=== PATIENT | male | born 1930 | race Caucasian/White ===

== ENCOUNTER 2016-08-23 08:16 | Emergency (ER) | payer MEDICARE, BC ==
[2016-08-23] MEDS ORDERED: Sodium Chloride 0.9% 500 ML IV ONE (08:57)
[2016-08-23] MEDS ORDERED: Sodium Chloride 0.9% 2.5 ML Syringe FLUSH PRN (08:57)
[2016-08-23] MEDS ORDERED: Sodium Chloride 0.9% 10 ML Syringe FLUSH PRN (08:57)
[2016-08-23 09:11] LABS: CHLORIDE,CL 104 mmol/L (98-110); SODIUM,NA 140 mmol/L (136-146)
--- NOTE | 2016-08-23 10:04 | EDM.PDOC ---
ED HPI GENERAL MEDICAL PROBLEM - General Chief Complaint: General Stated Complaint: VERTIGO Time Seen by Provider: 08/23/16 08:45 Source of Information: Reports: Patient, Family History Limitations: Reports: No Limitations - History of Present Illness INITIAL COMMENTS - FREE TEXT/NARRATIVE: History of present illness: []Patient presents with generalized weakness some point we cannot get out of his wheelchair and walk. He is from [place] and his just he secured [place] for her . He has not been eating well or drinking much. He denies any new pain but has chronic low back pain. Denies any numbness or tingling. Patient recently had a UTI was treated with Cipro but states he feels like he has another UTI. Review of systems: As per history of present illness and below otherwise all systems reviewed and negative. Past medical history: As per history of present illness and as reviewed below otherwise noncontributory. Surgical history: As per history of present illness and as reviewed below otherwise noncontributory. Social history: No reported history of drug or alcohol abuse. Family history: As per history of present illness and as reviewed below otherwise noncontributory. Physical exam: General: Well developed, well nourished in NAD HEENT: Atraumatic, normocephalic, pupils reactive, negative for conjunctival pallor or scleral icterus, mucous membranes moist, throat clear, neck supple, nontender, trachea midline. Lungs: Clear to auscultation, breath sounds equal bilaterally, chest nontender. Heart: S1S2, regular, negative for clicks, rubs, or JVD. Abdomen: Soft, nondistended, nontender. Negative for masses or hepatosplenomegaly. Negative for costovertebral tenderness. Pelvis: Stable nontender. Genitourinary: Deferred. Rectal: Deferred. Extremities: Atraumatic, negative for cords or calf pain. Neurovascular unremarkable. Neuro: Awake, alert, oriented. Cranial nerves II through XII unremarkable. Cerebellum unremarkable. Motor and sensory unremarkable throughout. Exam nonfocal. Diagnostics: [] Urine shows UTI Therapeutics: [] Rocephin IV and a liter of saline given here with improvement Impression: [] UTI, dehydration Plan: [] Bactrim twice a day increase fluids followup with primary care have INR rechecked in 2-3 days as Bactrim can alter the levels of your INR. Definitive disposition and diagnosis as appropriate pending reevaluation and review of above. Lower Back Pain Score (Numeric/FACES): 6 - Related Data Allergies Allergy/AdvReac Type Severity Reaction Status Date / Time NSAIDS (Non-Steroidal Allergy Cannot Verified 07/19/13 13:56 Anti-Inflamma Remember Salicylates * [Salicylates] Allergy Cannot Verified 07/19/13 13:56 Remember Home Meds: Home Meds Hydrochlorothiazide 25 mg PO DAILY 08/23/16 [History] Insulin Detemir [Levemir] 20 unit SUBCUT BEDTIME 08/23/16 [History] Metoprolol Tartrate 25 mg PO 08/23/16 [History] Oxybutynin 5 mg PO BID PRN 08/23/16 [History] Sulfamethoxazole/Trimethoprim [Bactrim Ds Tablet] 1 each PO BID #20 tablet 08/23 [Rx] Verapamil HCl [Verapamil ER] 240 mg PO DAILY 08/23/16 [History] Warfarin Sodium [Jantoven] 5 mg PO 08/23/16 [History] traMADol [Ultram] 50 mg PO Q6H PRN 08/23/16 [History] Past Medical History HEENT History: Reports: Hard of Hearing Cardiovascular History: Reports: Hypertension, Pacemaker, Syncope Other Cardiovascular History: Reports left bundle branch block Respiratory History: Reports: None Genitourinary History: Reports: Prostate Disorder, UTI, Recurrent, Other (See Below) Other Genitourinary History: Urinary Frequency Musculoskeletal History: Reports: Back Pain, Chronic Neurological History: Reports: Vertigo Endocrine/Metabolic History: Reports: Diabetes, Type II - Past Surgical History Cardiovascular Surgical History: Reports: Pacer Musculoskeletal Surgical History: Reports: Shoulder Surgery Other Musculoskeletal Surgeries/Procedures:: Patient reports "back surgery and bilateraly shoulder surgery" Social & Family History - Family History Family Medical History: Noncontributory - Tobacco Use Smoking Status *Q: Former Smoker Used Tobacco, but Quit: Yes Month Tobacco Last Used: years ago - Caffeine Use Caffeine Use: Reports: Coffee - Recreational Drug Use Recreational Drug Use: No ED ROS GENERAL - Review of Systems Review Of Systems: See Below (See history of present illness) ED EXAM, GENERAL - Physical Exam Exam: See Below (See history of present illness) Course - Vital Signs Last Recorded V/S: Last Vital Signs Temp 36.3 C 08/23/16 08:41 Pulse 78 08/23/16 09:45 Resp 16 08/23/16 09:45 BP 145/79 H 08/23/16 09:45 Pulse Ox 98 08/23/16 09:45 - Orders/Labs/Meds Orders: Active Orders 24 hr Category Date Time Status CULTURE URINE [RM] Stat Lab 08/23/16 09:38 Received Sodium Chloride 0.9% [Saline Flush] Med 08/23/16 08:57 Active 10 ml FLUSH ASDIRECTED PRN Sodium Chloride 0.9% [Saline Flush] Med 08/23/16 08:57 Active 2.5 ml FLUSH ASDIRECTED PRN cefTRIAXone [Rocephin in Dextrose,Iso-Osm 1 GM/50 ML] 1 Med 08/23/16 11:01 Active gm Premix Bag 1 bag IV ONETIME Peripheral IV Insertion Adult [OM.PC] Stat Oth 08/23/16 08:57 Ordered Medication Orders Ceftriaxone Sodium/Dextrose 1 (gm/ Premix) 50 mls @ 100 mls/hr IV ONETIME ONE Stop: 08/23/16 11:30 Last Admin: 08/23/16 11:05 Dose: 100 mls/hr Sodium Chloride (Saline Flush) 10 ml FLUSH ASDIRECTED PRN PRN Reason: Keep Vein Open Sodium Chloride (Saline Flush) 2.5 ml FLUSH ASDIRECTED PRN PRN Reason: Keep Vein Open Labs: Laboratory Tests 08/23/16 08/23/16 08/23/16 Range/Units 08:44 08:44 09:38 WBC 6.60 (4.0-11.0) K/uL RBC 3.60 L (4.50-5.90) M/uL Hgb 10.8 L (13.0-17.0) g/dL Hct 34.4 L (38.0-50.0) % MCV 95.6 (80.0-98.0) fL MCH 30.0 (27.0-32.0) pg MCHC 31.4 (31.0-37.0) g/dL RDW Std Deviation 46.3 (28.0-62.0) fl RDW Coeff of Meera 13 (11.0-15.0) % Plt Count 229 (150-400) K/uL MPV 8.50 (7.40-12.00) fL Neut % (Auto) 64.9 (48.0-80.0) % Lymph % (Auto) 20.6 (16.0-40.0) % [place] % (Auto) 11.2 (0.0-15.0) % Eos % (Auto) 2.7 (0.0-7.0) % Baso % (Auto) 0.6 (0.0-1.5) % Neut # (Auto) 4.3 (1.4-5.7) K/uL Lymph # (Auto) 1.4 (0.6-2.4) K/uL [place] # (Auto) 0.7 (0.0-0.8) K/uL Eos # (Auto) 0.2 (0.0-0.7) K/uL Baso # (Auto) 0.0 (0.0-0.1) K/uL Nucleated RBC % 0.0 /100WBC Nucleated RBCs # 0 K/uL Sodium 140 (136-146) mmol/L Potassium 4.0 (3.5-5.1) mmol/L Chloride 104 (98-110) mmol/L Carbon Dioxide 26 (21-31) mmol/L BUN 32 H (6.0-23.0) mg/dL Creatinine 1.0 (0.6-1.5) mg/dL Est Cr Clr Drug Dosing 49.40 mL/min Estimated GFR (MDRD) > 60.0 ml/min Glucose 135 H (60-110) mg/dL Calcium 9.3 (8.8-10.8) mg/dL Total Bilirubin 0.5 (0.1-1.5) mg/dL AST 15 (5-40) IU/L ALT 9 (8-54) IU/L Alkaline Phosphatase 68 (40-150) Total Protein 7.3 (6.0-8.0) g/dL Albumin 3.6 (3.4-4.8) g/dL Globulin 3.7 H (2.0-3.5) g/dL Albumin/Globulin Ratio 1.0 L (1.3-2.8) Urine Color YELLOW Urine Appearance SLT CLOUDY Urine pH 6.0 (5.0-8.0) Ur Specific [place] 1.015 (1.001-1.035) Urine Protein 30 (NEGATIVE) mg/dL Urine Glucose (UA) NEGATIVE (NEGATIVE) mg/dL Urine Ketones NEGATIVE (NEGATIVE) mg/dL Urine Occult Blood SMALL H (NEGATIVE) Urine Nitrite NEGATIVE (NEGATIVE) Urine Bilirubin NEGATIVE (NEGATIVE) Urine Urobilinogen 0.2 (<2.0) EU/dL Ur Leukocyte Esterase LARGE (NEGATIVE) Urine RBC 2-3 (0-2/HPF) Urine WBC TO NUMEROUS TO COUNT H (0-5/HPF) Ur Epithelial Cells RARE (NONE-FEW) Amorphous Sediment FEW (NEGATIVE) Urine Bacteria FEW (NEGATIVE) Meds: Medications Generic Name Dose Route Start Last Admin Trade Name Freq PRN Reason Stop Dose Admin Ceftriaxone Sodium/Dextrose 1 50 mls @ 100 mls/hr 08/23/16 11:01 08/23/16 11: 05 gm/ Premix IV 08/23/16 11:30 100 mls/hr ONETIME ONE Administration Sodium Chloride 10 ml 08/23/16 08:57 Saline Flush FLUSH ASDIRECTED PRN Keep Vein Open Sodium Chloride 2.5 ml 08/23/16 08:57 Saline Flush FLUSH ASDIRECTED PRN Keep Vein Open Discontinued Medications Generic Name Dose Route Start Last Admin Trade Name Freq PRN Reason Stop Dose Admin Sodium Chloride 500 mls @ 999 mls/hr 08/23/16 08:57 08/23/16 09:20 Normal Saline IV 08/23/16 09:27 999 mls/hr .Bolus ONE Administration Departure - Departure Time of Disposition: 11:26 Disposition: Home, Self-Care 01 Condition: good Clinical Impression: UTI (urinary tract infection) Qualifiers: Urinary tract infection type: site unspecified Hematuria presence: without hematuria Qualified Code(s): N39.0 - Urinary tract infection, site not specified - Discharge Information Prescriptions: Sulfamethoxazole/Trimethoprim [Bactrim Ds Tablet] 1 each PO BID #20 tablet Instructions: Urinary Tract Infection, Adult Referrals: PCP,None [Primary Care Provider] - Forms: ED Department Discharge Additional Instructions: The following information is given to patients seen in the emergency department who are being discharged to home. This information is to outline your options for follow-up care. We provide all patients seen in our emergency department with a follow-up referral. The need for follow-up, as well as the timing and circumstances, are variable depending upon the specifics of your emergency department visit. If you don't have a primary care physician on staff, we will provide you with a referral. We always advise you to contact your personal physician following an emergency department visit to inform them of the circumstance of the visit and for follow-up with them and/or the need for any referrals to a consulting specialist. The emergency department will also refer you to a specialist when appropriate. This referral assures that you have the opportunity for follow-up care with a specialist. All of these measure are taken in an effort to provide you with optimal care, which includes your follow-up. Under all circumstances we always encourage you to contact your private physician who remains a resource for coordinating your care. When calling for follow-up care, please make the office aware that this follow-up is from your recent emergency room visit. If for any reason you are refused follow-up, please contact the [facility] Emergency Department at and asked to speak to the emergency department charge nurse. Bactrim twice a day for 10 days. Have INR checked in 2-3 days. Followup with her primary care physician. Drink lots of fluids [facility] [address] [place] [address] - My Orders Last 24 Hours: My Active Orders 08/23/16 08:57 Sodium Chloride 0.9% [Saline Flush] 10 ml FLUSH ASDIRECTED PRN Sodium Chloride 0.9% [Saline Flush] 2.5 ml FLUSH ASDIRECTED PRN Peripheral IV Insertion Adult [OM.PC] Stat 08/23/16 09:38 CULTURE URINE [RM] Stat 08/23/16 11:01 cefTRIAXone [Rocephin in Dextrose,Iso-Osm 1 GM/50 ML] 1 gm Premix Bag 1 bag IV ONETIME - Assessment/Plan Last 24 Hours: My Active Orders 08/23/16 08:57 Sodium Chloride 0.9% [Saline Flush] 10 ml FLUSH ASDIRECTED PRN Sodium Chloride 0.9% [Saline Flush] 2.5 ml FLUSH ASDIRECTED PRN Peripheral IV Insertion Adult [OM.PC] Stat 08/23/16 09:38 CULTURE URINE [RM] Stat 08/23/16 11:01 cefTRIAXone [Rocephin in Dextrose,Iso-Osm 1 GM/50 ML] 1 gm Premix Bag 1 bag IV ONETIME
[2016-08-23] MEDS ORDERED: cefTRIAXone 1 GM in Premix Bag 1 BAG IV ONE (11:01)
[2016-08-23 11:39] VITALS: BP 149/79
== END 2016-08-23 11:35 | disposition home or self-care (01) ==
LOC: MW.ED 08:16
DX: N39.0 Urinary tract infection, site not specified (principal); E86.0 Dehydration; E11.9 Type 2 diabetes mellitus without complications; I10 Essential (primary) hypertension; Z88.8 Allergy status to other drugs, medicaments and biological substances; Z91.02 Food additives allergy status; Z79.899 Other long term (current) drug therapy; Z95.0 Presence of cardiac pacemaker; Z87.440 Personal history of urinary (tract) infections; Z87.891 Personal history of nicotine dependence
CPT/HCPCS: 36415; 80053; 81001; 85025; 87086; 96361; 96365; 99283; J0696; J7040; 87077; 87186; 99284

== ENCOUNTER 2016-08-25 23:11 | Inpatient (IN) | payer MEDICARE, BC ==
[2016-08-26] MEDS ORDERED: levETIRAcetam Soln 500 MG/5 ML Cup PO ONE (00:26)
--- NOTE | 2016-08-26 01:01 | EDM.PDOC ---
ED HPI GENERAL MEDICAL PROBLEM - General Chief Complaint: Neuro Symptoms/Deficits Stated Complaint: VERTIGO Time Seen by Provider: 08/25/16 23:50 Source of Information: Reports: Patient, Family - History of Present Illness INITIAL COMMENTS - FREE TEXT/NARRATIVE: He is brought in by family members.His 's was yesterday. He presents with intermittent involuntary muscle jerking x 3-4 days that have been increasing in frequency . He started tramadol for chronic back pain about two weeks ago No known history of stroke or dementia or Parkinson's recently, the last days to weeks, he seems to know what to say but he has trouble "getting the words out". no fever no vomiting poor appetite lower back Pain Score (Numeric/FACES): 5 - Related Data Allergies Allergy/AdvReac Type Severity Reaction Status Date / Time NSAIDS (Non-Steroidal Allergy Cannot Verified 08/25/16 23:12 Anti-Inflamma Remember Salicylates * [Salicylates] Allergy Cannot Verified 08/25/16 23:12 Remember Home Meds: Home Meds Hydrochlorothiazide 25 mg PO DAILY 08/23/16 [History] Insulin Detemir [Levemir] 20 unit SUBCUT BEDTIME 08/23/16 [History] Metoprolol Tartrate 25 mg PO DAILY 08/23/16 [History] Oxybutynin 5 mg PO BID PRN 08/23/16 [History] Sulfamethoxazole/Trimethoprim [Bactrim Ds Tablet] 1 each PO BID #20 tablet 08/23 [Rx] Verapamil HCl [Verapamil ER] 240 mg PO DAILY 08/23/16 [History] Warfarin Sodium [Jantoven] 5 mg PO DAILY 08/23/16 [History] traMADol [Ultram] 50 mg PO Q6H PRN 08/23/16 [History] Past Medical History HEENT History: Reports: Hard of Hearing Cardiovascular History: Reports: Afib, Hypertension, Pacemaker, Syncope Other Cardiovascular History: Reports left bundle branch block Respiratory History: Reports: None Gastrointestinal History: Reports: None Genitourinary History: Reports: Prostate Disorder, UTI, Recurrent, Other (See Below) Other Genitourinary History: Urinary Frequency Musculoskeletal History: Reports: Back Pain, Chronic Neurological History: Reports: Vertigo Psychiatric History: Reports: None Endocrine/Metabolic History: Reports: Diabetes, Type II Hematologic History: Reports: None Dermatologic History: Reports: None - Infectious Disease History Infectious Disease History: Reports: None - Past Surgical History Cardiovascular Surgical History: Reports: Pacer Musculoskeletal Surgical History: Reports: Shoulder Surgery Other Musculoskeletal Surgeries/Procedures:: Patient reports "back surgery and bilateraly shoulder surgery" Social & Family History - Family History Family Medical History: Noncontributory - Tobacco Use Smoking Status *Q: Never Smoker Used Tobacco, but Quit: Yes Month Tobacco Last Used: years ago - Caffeine Use Caffeine Use: Reports: None - Recreational Drug Use Recreational Drug Use: No ED ROS GENERAL - Review of Systems Review Of Systems: See Below Constitutional: Denies: Fever, Chills Respiratory: Denies: Shortness of Breath, Cough, Sputum Cardiovascular: Denies: Chest Pain, Edema GI/Abdominal: Reports: Decreased Appetite. Denies: Abdominal Pain, Hematemesis , Hematochezia, Melena, Vomiting Skin: Denies: Cyanosis Psychiatric: Denies: Agitation, Confusion Free Text/Narrative/Comment: he has not been on insulin recently because he has been eating less. ED EXAM, NEURO - Physical Exam Exam: See Below Text/Narrative:: He is cooperative but seems to have trouble in answering questions . He is able to state where we are but his answer is delayed and he appears frustrated. He did not answer me the year when asked. frequent upper extremity and torso myoclonic jerking; symmetrical General Appearance: Alert Throat/Mouth: Normal Lips Head Exam: Atraumatic Neck: Supple Respiratory/Chest: No Respiratory Distress, Lungs Clear, Normal Breath Sounds, No Accessory Muscle Use Cardiovascular: Regular Rate, Rhythm GI/Abdominal: Soft, No Distention. No: Tender Neurological: Alert Extremities: No: Pedal Edema Comments: no motor asymmetry Course - Vital Signs Last Recorded V/S: Last Vital Signs Temp 97.5 F 08/26/16 00:26 Pulse 78 08/26/16 01:24 Resp 20 08/26/16 01:24 BP 120/60 08/26/16 01:24 Pulse Ox 98 08/26/16 01:24 - Orders/Labs/Meds Orders: Active Orders 24 hr Category Date Time Status EKG 12 Lead [EKG Documentation Completion] [RC] STAT Care 08/25/16 23:14 Active Head wo Cont [CT] Stat Exams 08/26/16 00:24 Taken CULTURE URINE [RM] Stat Lab 08/26/16 01:47 Uncollected Labs: Laboratory Tests 08/25/16 08/26/16 08/26/16 Range/Units 23:40 00:31 00:31 WBC 5.80 (4.0-11.0) K/uL RBC 3.14 L (4.50-5.90) M/uL Hgb 9.8 L (13.0-17.0) g/dL Hct 29.9 L (38.0-50.0) % MCV 95.2 (80.0-98.0) fL MCH 31.2 (27.0-32.0) pg MCHC 32.8 (31.0-37.0) g/dL RDW Std Deviation 43.3 (28.0-62.0) fl RDW Coeff of Meera 13 (11.0-15.0) % Plt Count 233 (150-400) K/uL MPV 8.30 (7.40-12.00) fL Neut % (Auto) 67.1 (48.0-80.0) % Lymph % (Auto) 19.3 (16.0-40.0) % [place] % (Auto) 9.8 (0.0-15.0) % Eos % (Auto) 3.1 (0.0-7.0) % Baso % (Auto) 0.7 (0.0-1.5) % Neut # (Auto) 3.9 (1.4-5.7) K/uL Lymph # (Auto) 1.1 (0.6-2.4) K/uL [place] # (Auto) 0.6 (0.0-0.8) K/uL Eos # (Auto) 0.2 (0.0-0.7) K/uL Baso # (Auto) 0.0 (0.0-0.1) K/uL Sodium 134 L (136-146) mmol/L Potassium 3.8 (3.5-5.1) mmol/L Chloride 103 (98-110) mmol/L Carbon Dioxide 22 (21-31) mmol/L BUN 27 H (6.0-23.0) mg/dL Creatinine 1.2 (0.6-1.5) mg/dL Est Cr Clr Drug Dosing 41.32 mL/min Estimated GFR (MDRD) 57.1 ml/min Glucose 113 H (60-110) mg/dL Calcium 8.8 (8.8-10.8) mg/dL Magnesium 1.6 (1.5-2.3) mEq/L Total Bilirubin 0.3 (0.1-1.5) mg/dL AST 17 (5-40) IU/L ALT 10 (8-54) IU/L Alkaline Phosphatase 60 (40-150) Total Protein 6.7 (6.0-8.0) g/dL Albumin 3.3 L (3.4-4.8) g/dL Globulin 3.4 (2.0-3.5) g/dL Albumin/Globulin Ratio 1.0 L (1.3-2.8) Urine Color YELLOW Urine Appearance SLT CLOUDY Urine pH 6.5 (5.0-8.0) Ur Specific [place] 1.020 (1.001-1.035) Urine Protein 30 (NEGATIVE) mg/dL Urine Glucose (UA) NEGATIVE (NEGATIVE) mg/dL Urine Ketones NEGATIVE (NEGATIVE) mg/dL Urine Occult Blood TRACE-INTACT (NEGATIVE) Urine Nitrite POSITIVE H (NEGATIVE) Urine Bilirubin NEGATIVE (NEGATIVE) Urine Urobilinogen 0.2 (<2.0) EU/dL Ur Leukocyte Esterase MODERATE (NEGATIVE) Urine RBC 0-2 (0-2/HPF) Urine WBC 41-46 (0-5/HPF) Ur Epithelial Cells FEW (NONE-FEW) Urine Bacteria FEW (NEGATIVE) Urine Mucus LIGHT (NONE-MOD) Meds: Medications Discontinued Medications Generic Name Dose Route Start Last Admin Trade Name Freq PRN Reason Stop Dose Admin Levetiracetam 500 mg 08/26/16 00:26 08/26/16 01:22 Keppra PO 08/26/16 00:27 500 mg NOW ONE Administration - Re-Assessments/Exams Free Text/Narrative Re-Assessment/Exam: 08/26/16 01:08 EKG shows paced wide QRS copmlexes Free Text/Narrative Re-Assessment/Exam: 08/26/16 01:[address] shows no acute intracranial process but he does have cerebral atrophy. I am concerned about the possibility of a recent stroke not seen on CT as he has an expressive aphasia The etiology of the symptoms may be multifactorial but we did discuss the possibility of tramadol as a cause. Departure - Departure Time of Disposition: 01:51 Disposition: Admitted As Inpatient 64 Condition: fair Clinical Impression: UTI (urinary tract infection), Expressive aphasia, Myoclonus - Discharge Information Referrals: PCP,None [Primary Care Provider] - Forms: ED Department Discharge Care Plan Goals: UTI with failed outpatient therapy. post void urinary bladder volume on scanning about 160 ml - My Orders Last 24 Hours: My Active Orders 08/25/16 23:14 EKG 12 Lead [EKG Documentation Completion] [RC] STAT 08/26/16 00:24 Head wo Cont [CT] Stat 08/26/16 01:47 CULTURE URINE [RM] Stat - Assessment/Plan Last 24 Hours: My Active Orders 08/25/16 23:14 EKG 12 Lead [EKG Documentation Completion] [RC] STAT 08/26/16 00:24 Head wo Cont [CT] Stat 08/26/16 01:47 CULTURE URINE [RM] Stat
[2016-08-26] MEDS ORDERED: Sodium Chloride 0.9% 10 ML Syringe FLUSH PRN (01:53)
[2016-08-26] MEDS ORDERED: Temazepam 15 MG Cap PO PRN (01:53)
[2016-08-26] MEDS ORDERED: Bisacodyl 5 MG Tab PO PRN (01:53)
[2016-08-26] MEDS ORDERED: Sodium Chloride 0.9% 2.5 ML Syringe FLUSH PRN (01:53)
[2016-08-26] MEDS ORDERED: Ondansetron 4 MG Tab.DIS PO PRN (01:53)
[2016-08-26] MEDS ORDERED: cefTRIAXone 1 GM in Premix Bag 1 BAG IV ONE (02:01)
[2016-08-26] MEDS ORDERED: Morphine 4 MG/ML Syringe IVPUSH PRN (05:26)
[2016-08-26] MEDS ORDERED: Morphine 2 MG/ML Syringe IVPUSH PRN (08:15)
--- NOTE | 2016-08-26 08:17 | PCM.HP ---
H&P History of Present Illness - General Date of Service: 08/26/16 Admit Problem/Dx: Admission Diagnosis/Problem Admission Diagnosis/Problem Aphasia Source of Information: Patient - History of Present Illness Initial Comments - Free Text/Narative: This 86 h[place]encia old male with pmh of chronic back pain with L4-5 fusion and L2-3 decompression, pacemaker, HTN, syncope, recurrent UTIs, and DM type 2 presented to the ED last evening upon urging from children. He currently is living in [place], but is here is [place] for his 's . He reports he has had symptoms of the inability to find words, generalized weakness, jerking of upper extremities intermittently, and reports some swallowing difficulties within the last week. He denies any chest pain, SOB, palpitations, headache blurred vision or double vision. No fevers at home, no neck pain. No abdominal pain. Still having some urinary symptoms, burning and frequency. His back pain is hurting more recently and was started on Tramadol, around the time a lot of these symtpoms started. He feels while walking he is "going one way then another and back again." He has had trouble getting up and ambulating for the last week, feels like his "left knee or something" is weak. In ED family reported a jerking to upper limbs, symmetrical. No family at bedside to discuss recent symptoms with. 1 to 1 1/2 weeks ago he was treated for UTI by physician in [place] for UTI with Cipro for 7 days. He was then seen back in our ED 2 days ago for continued urinary symptoms. He was sent home with Bactrim DS and just today UC returned with Staph aureus resistant to fluoroquinolones. In the ED WBC 5,000 Hgb 9.8, BUN 27, Cr 1.2. INR 1.49. UA revealed +nitrites, mod leukocyte esterase, WBC 41-46, UC pending. Head CT completed which revealed no acute intracranial process, diffuse cerebral atrophy noted, chronic microvascular disease noted as well. He was treated with Rocephin in ED and admitted for aphasia and UTI. He was started on Keppra in ED for myoclonic jerking which was noted. lower back Pain Score (Numeric/FACES): 3 - Related Data Allergies/Adverse Reactions: Allergies Allergy/AdvReac Type Severity Reaction Status Date / Time NSAIDS (Non-Steroidal Allergy Cannot Verified 08/25/16 23:12 Anti-Inflamma Remember Salicylates * [Salicylates] Allergy Cannot Verified 08/25/16 23:12 Remember Home Medications: Home Meds Hydrochlorothiazide 25 mg PO DAILY 08/23/16 [History] Insulin Detemir [Levemir] 20 unit SUBCUT BEDTIME 08/23/16 [History] Metoprolol Tartrate 25 mg PO DAILY 08/23/16 [History] Oxybutynin 5 mg PO BID PRN 08/23/16 [History] Sulfamethoxazole/Trimethoprim [Bactrim Ds Tablet] 1 each PO BID #20 tablet 08/23 [Rx] Verapamil HCl [Verapamil ER] 240 mg PO DAILY 08/23/16 [History] Warfarin Sodium [Jantoven] 5 mg PO DAILY 08/23/16 [History] traMADol [Ultram] 50 mg PO Q6H PRN 08/23/16 [History] Past Medical History HEENT History: Reports: Hard of Hearing, Impaired Vision (wears glasses) Cardiovascular History: Reports: Afib, High Cholesterol, Hypertension, Pacemaker , Syncope. Denies: Blood Clots/VTE/DVT, Stents Other Cardiovascular History: Hx left bundle branch block Respiratory History: Reports: None. Denies: COPD Gastrointestinal History: Reports: None. Denies: GERD, GI Bleed Genitourinary History: Reports: Prostate Disorder, UTI, Recurrent, Other (See Below) Other Genitourinary History: Urinary Frequency Musculoskeletal History: Reports: Back Pain, Chronic Neurological History: Reports: Vertigo Psychiatric History: Reports: None Endocrine/Metabolic History: Reports: Diabetes, Type II. Denies: Hypothyroidism Hematologic History: Reports: None. Denies: B12 Deficiency Dermatologic History: Reports: None - Infectious Disease History Infectious Disease History: Reports: None - Past Surgical History Cardiovascular Surgical History: Reports: Pacer Male Surgical History: Reports: TURP-Transurethral Resection of Prostate Musculoskeletal Surgical History: Reports: Shoulder Surgery Other Musculoskeletal Surgeries/Procedures:: Patient reports "back surgery and bilateraly shoulder surgery" Social & Family History - Family History Family Medical History: Noncontributory - Tobacco Use Smoking Status *Q: Former Smoker (not for over 20 years) Used Tobacco, but Quit: Yes Month Tobacco Last Used: years ago Second Hand Smoke Exposure: No - Caffeine Use Caffeine Use: Reports: Coffee - Recreational Drug Use Recreational Drug Use: No H&P Review of Systems - Review of Systems: Review Of Systems: See Below General: Reports: Weakness. Denies: Fever, Chills, Decreased Appetite HEENT: Reports: No Symptoms. Denies: Eye Pain, Headaches, Sinus Congestion, Vertigo, Visual Changes Pulmonary: Reports: No Symptoms. Denies: Shortness of Breath, Cough, Sputum Cardiovascular: Reports: No Symptoms. Denies: Chest Pain, Palpitations, Edema Gastrointestinal: Reports: No Symptoms. Denies: Abdominal Pain, Diarrhea, Distension, Nausea, Vomiting Genitourinary: Reports: Dysuria, Frequency, Burning Musculoskeletal: Reports: Back Pain (chronic, with acute increase in pain over the last 1-2 weeks) Skin: Reports: No Symptoms Psychiatric: Reports: No Symptoms Neurological: Reports: Tremors (or jerking noted from family), Trouble Speaking , Difficulty Walking, Weakness Hematologic/Lymphatic: Reports: No Symptoms Immunologic: Reports: No Symptoms Exam - Exam Exam: See Below - Vital Signs Vital Signs: Last Vital Signs Temp 97.4 F 08/26/16 07:33 Pulse 57 L 08/26/16 07:33 Resp 22 H 08/26/16 07:33 BP 136/55 L 08/26/16 07:33 Pulse Ox 93 L 08/26/16 07:33 Weight: 77.474 kg - Exam General: Alert, Oriented, Cooperative HEENT: Conjunctiva Clear, Mucosa Moist & [place], Nares Patent, Pupils Reactive, TMs Clear Neck: Supple, Trachea Midline. No: JVD Lungs: Clear to Auscultation, Normal Respiratory Effort Cardiovascular: Regular Rate, Regular Rhythm, Normal S1, Normal S2. No: Tachycardia, Systolic Murmur Abdomen: Normal Bowel Sounds, Soft. No: Distention, Guarding, Rigidity, Tenderness Back Exam: Normal Inspection, Full Range of Motion Extremities: Normal Inspection, Normal Pulses Neurological: Strength Equal Bilateral, Normal Speech. No: Normal Gait, Hyperreflexia, Hyporeflexia Neuro Extensive - Mental Status: Alert, Oriented x3, Normal Mood/Affect, Normal Cognition Neuro Extensive - Motor, Sensory, Reflexes: CN II-XII Intact, Normal Reflexes, Abnormal Gait (able to get to standing position, very weak and takes several attempts to stand, stood for short period of time and reported he can't do more relating to back pain.), Other (No jerking noted during my assessment and interview.). No: Normal Gait Psychiatric: Alert, Normal Affect, Normal Mood - Patient Data Lab Results last 24 hrs: Laboratory Results - last 24 hr 08/26/16 Range/Units 06:06 POC Glucose 103 (60-110) mg/dL Result Diagrams: 08/26/16 00:31 08/26/16 00:31 *Q Meaningful Use (ADM) - VTE *Q VTE Criteria *Q: - VTE Risk Assess *Q Each Risk Factor Represents 1 Point: None Total Score 1 Point Risk Factors: 0 Each Risk Factor Represents 2 Points: None Total Score 2 Point Risk Factors: 0 Each Risk Factor Represents 3 Points: Age 75 Years or Greater Total Score 3 Point Risk Factors: 3 Each Risk Factor Represents 5 Points: None Total Score 5 Point Risk Factors: 0 Venous Thromboembolism Risk Factor Score *Q: 3 - Stroke *Q Stroke Criteria *Q: - AMI *Q AMI Criteria *Q: - Problem List (1) Myoclonus SNOMED Code(s): 47884911, 574699999 ICD Code: G25.3 - MYOCLONUS Status: Acute Current Visit: Yes (2) UTI (urinary tract infection) SNOMED Code(s): 01793266 ICD Code: N39.0 - URINARY TRACT INFECTION, SITE NOT SPECIFIED Status: Acute Current Visit: Yes Qualifiers: Hematuria presence: without hematuria (3) Prostatitis SNOMED Code(s): 1660601 ICD Code: N41.9 - INFLAMMATORY DISEASE OF PROSTATE, UNSPECIFIED Status: Acute Current Visit: Yes Qualifiers: Prostatitis type: acute Qualified Code(s): N41.0 - Acute prostatitis (4) Expressive aphasia SNOMED Code(s): 056358167 ICD Code: R47.01 - APHASIA Status: Acute Current Visit: Yes (5) HTN (hypertension) SNOMED Code(s): 46876930 ICD Code: I10 - ESSENTIAL (PRIMARY) HYPERTENSION Status: Chronic Current Visit: Yes Qualifiers: Hypertension type: essential hypertension Qualified Code(s): I10 - Essential (primary) hypertension (6) Pacemaker SNOMED Code(s): 059919168, 567623630 ICD Code: Z95.0 - PRESENCE OF CARDIAC PACEMAKER Status: Chronic Current Visit: Yes (7) Afib SNOMED Code(s): 19648700 ICD Code: I48.91 - UNSPECIFIED ATRIAL FIBRILLATION Status: Chronic Current Visit: Yes Qualifiers: Atrial fibrillation type: unspecified Qualified Code(s): I48.91 - Unspecified atrial fibrillation (8) DM type 2 (diabetes mellitus, type 2) SNOMED Code(s): 24516812 ICD Code: E11.9 - TYPE 2 DIABETES MELLITUS WITHOUT COMPLICATIONS Status: Chronic Current Visit: Yes Qualifiers: Diabetes mellitus complication status: without complication Diabetes mellitus senior living insulin use: with livestock commission agent use Qualified Code(s): E11.9 - Type 2 diabetes mellitus without complications; 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 Problem List Initiated/Reviewed/Updated: Yes Orders Last 24hrs: Active Orders 24 hr Category Date Time Status Accu Check [Blood Glucose Check, Bedside] [] Care 08/26/16 06:00 Active QIDACANDBED Communication Order [] ROUTINE Care 08/26/16 03:31 Active [employer] Diet [DIET] Diet 08/27/16 Breakfast Active Brain wo Cont [MR] Urgent Exams 08/26/16 08:00 Ordered INR,PT,PROTHROMBIN TIME [COAG] AM Lab 08/27/16 05:11 Ordered INR,PT,PROTHROMBIN TIME [COAG] AM Lab 08/28/16 05:11 Ordered Acetaminophen [Tylenol] Med 08/26/16 08:14 Ordered 650 mg PO Q4H PRN Hydrochlorothiazide Med 08/26/16 09:00 Active 25 mg PO DAILY Insulin Detemir [Levemir] Med 08/26/16 21:00 Ordered 20 unit SUBCUT BEDTIME Metoprolol Tartrate [Lopressor] Med 08/26/16 09:00 Active 25 mg PO DAILY Morphine Med 08/26/16 08:15 Ordered 2 mg IVPUSH Q3H PRN Oxybutynin Med 08/26/16 01:57 Active 5 mg PO BID PRN Verapamil [Calan SR] Med 08/26/16 09:00 Active 240 mg PO DAILY Warfarin [Coumadin] Med 08/26/16 09:00 Active 5 mg PO DAILY levETIRAcetam [Keppra] Med 08/26/16 09:00 Active 500 mg PO BID Medication Orders Acetaminophen (Tylenol) 650 mg PO Q4H PRN PRN Reason: Pain Bisacodyl (Dulcolax) 5 mg PO DAILY PRN PRN Reason: Constipation Docusate Sodium (Colace) 100 mg PO BID GIANNA Hydrochlorothiazide (Hydrochlorothiazide) 25 mg PO DAILY GIANNA Levetiracetam (Keppra) 500 mg PO BID GIANNA Metoprolol Tartrate (Lopressor) 25 mg PO DAILY GIANNA Morphine Sulfate (Morphine) 2 mg IVPUSH Q3H PRN PRN Reason: Pain Ondansetron HCl (Zofran Odt) 4 mg PO Q4H PRN PRN Reason: nausea, able to take PO Oxybutynin Chloride (Oxybutynin) 5 mg PO BID PRN PRN Reason: Dysuria Sodium Chloride (Saline Flush) 10 ml FLUSH ASDIRECTED PRN PRN Reason: Keep Vein Open Sodium Chloride (Saline Flush) 2.5 ml FLUSH ASDIRECTED PRN PRN Reason: Keep Vein Open Temazepam (Restoril) 15 mg PO BEDTIME PRN PRN Reason: Sleep Verapamil HCl (Calan Sr) 240 mg PO DAILY GIANNA Warfarin Sodium (Coumadin) 5 mg PO DAILY GIANNA Assessment/Plan Comment:: This 86 year old male admitted with aphasia and UTI 1. Aphasia: Speaking normal this am. Unable to do MRI due to pacemaker. Will consult Dr. Macdonald regarding aphasia and myoclonic jerking. Keppra started in ED will stop per recommendation of Dr. Macdonald. Dr. Macdonald will come to see patient today. Will place on telemetry 2. UTI/Prostatitis: Ancef 1 g IV Q8, will monitor. UC pending. 3. Afib: Continue Coumadin and Metoprolol and Verapamil. 4. HTN: Continue HCTZ 5. DM type 2: Continue Levemir. Add Novolog SSI with meals. VTE prophylaxis: On Coumadin. Dispo: 1-2 days pending improvement.
[2016-08-26] MEDS: Oxybutynin 5 MG Tab PO PRN ×2 (08:20→22:29)
[2016-08-26] MEDS: Docusate Sodium 100 MG Cap PO SCH ×2 (08:20→20:49)
[2016-08-26] MEDS: Verapamil 240 MG Tab.ER PO SCH (08:21)
[2016-08-26] MEDS: Metoprolol Tartrate 25 MG Tab PO SCH (08:21)
[2016-08-26] MEDS ORDERED: Hydrochlorothiazide 25 MG Tab PO SCH ×2 (09:00→21:00)
[2016-08-26] MEDS ORDERED: levETIRAcetam Soln 500 MG/5 ML Cup PO SCH (09:00)
[2016-08-26] MEDS ORDERED: Warfarin 5 MG Tab PO SCH (09:00)
[2016-08-26] MEDS ORDERED: VERAPAMIL HCL 240 MG PO SCH (09:00)
[2016-08-26] MEDS: ceFAZolin 1 GM in Premix Bag 1 BAG IV SCH ×3 (09:26→23:55)
--- NOTE | 2016-08-26 10:24 | CT ---
EXAM DATE: 08/26/16 PATIENT'S AGE: 86 Patient: DAMON JNEKINS Facility: [facility], [place] Site . Site : 1930 Study: CT Head [id number]/17/2017 1:03:45 AM Ordering Physician: Dayne Ledbetter Final Report: INDICATION: confusion x 1 mo TECHNIQUE: CT Head without contrast. COMPARISON: None. FINDINGS: There is no sign of intracranial hemorrhage or mass effect. Diffuse cerebral atrophy. Nonspecific low-attenuation along the periventricular white matter, most likely related to chronic microvascular disease. Ventricles and sulci are symmetric and midline. The haskins-white differentiation is preserved. No abnormal intra-axial or extra-axial fluid collection. No acute disease of the visualized paranasal sinuses and mastoid air cells. No fracture evident. No scalp hematoma/ laceration. IMPRESSION: No acute intracranial process. Dictated by: Dany Billings MD @ 08/26/2016 01:07:21 (Electronic Signature) Report Signed by Proxy. [facility]
--- NOTE | 2016-08-26 14:00 | PCM.CONS ---
[id number] Diagnosis/Problem Admission Diagnosis/Problem impaired speech, weakness, involuntary movements, ataxia - History of Present Illness Initial Comments - Free Text/Narative: This is an 86-year-old man with a history of chronic back pain status post fusion, hypertension, syncope, recurrent UTIs, status post pacemaker placement, atrial fibrillation, diabetes who was brought to the emergency department last night with dizziness, generalized weakness, jerking limb movements, abnormal speech. 1-2 weeks ago, his family noted that he was having some trouble speaking. He seemed to difficulty getting the words out, and speech was slow. 6 days ago, he complained to his daughter that he was having jerking leg movements, but he states now that it started a few days before that. A 1-2 weeks ago he also had developed generalized weakness, imbalance. His walking is often he will be her one direction or the other and feel like he is going to fall backwards. About 2 weeks ago he was treated for a urinary tract infection by a physician in [place]. He had been seen in [place] this family. His has been sick for several months, and she recently . Her was on Wednesday. On August 23, he presented to our emergency department with inability to get out of his wheelchair and walk. Urinalysis at that time demonstrated numerous white cells, large leukocyte esterase, bacteria. He was given fluids. He was given a dose of ceftriaxone, and discharged on Bactrim. Urine culture grew staph aureus that was resistant to ciprofloxacin, susceptible to Bactrim. He was started on Keppra. He was improved the next day, but symptoms worsened again. He has more difficulty with speech. He was brought back to the emergency department again last night. He had more frequent involuntary muscle jerking. Urinalysis revealed white cells, moderate leukocyte esterase and nitrates. He's been on tramadol for about 2 weeks for back pain lower back Pain Score (Numeric/FACES): 3 - Related Data Allergies/Adverse Reactions: Allergies Allergy/AdvReac Type Severity Reaction Status Date / Time NSAIDS (Non-Steroidal Allergy Cannot Verified 08/25/16 23:12 Anti-Inflamma Remember Salicylates * [Salicylates] Allergy Cannot Verified 08/25/16 23:12 Remember Home Medications: Home Meds Hydrochlorothiazide 25 mg PO DAILY 08/23/16 [History] Insulin Detemir [Levemir] 20 unit SUBCUT BEDTIME 08/23/16 [History] Metoprolol Tartrate 25 mg PO DAILY 08/23/16 [History] Oxybutynin 5 mg PO BID PRN 08/23/16 [History] Sulfamethoxazole/Trimethoprim [Bactrim Ds Tablet] 1 each PO BID #20 tablet 08/23 [Rx] Verapamil HCl [Verapamil ER] 240 mg PO DAILY 08/23/16 [History] Warfarin Sodium [Jantoven] 5 mg PO DAILY 08/23/16 [History] traMADol [Ultram] 50 mg PO Q6H PRN 08/23/16 [History] Past Medical History HEENT History: Reports: Hard of Hearing, Impaired Vision (wears glasses) Cardiovascular History: Reports: Afib, High Cholesterol, Hypertension, Pacemaker , Syncope. Denies: Blood Clots/VTE/DVT, Stents Other Cardiovascular History: Hx left bundle branch block Respiratory History: Reports: None. Denies: COPD Gastrointestinal History: Reports: None. Denies: GERD, GI Bleed Genitourinary History: Reports: Prostate Disorder, UTI, Recurrent, Other (See Below) Other Genitourinary History: Urinary Frequency Musculoskeletal History: Reports: Back Pain, Chronic Neurological History: Reports: Vertigo Psychiatric History: Reports: None Endocrine/Metabolic History: Reports: Diabetes, Type II. Denies: Hypothyroidism Hematologic History: Reports: None. Denies: B12 Deficiency Dermatologic History: Reports: None - Infectious Disease History Infectious Disease History: Reports: None - Past Surgical History Cardiovascular Surgical History: Reports: Pacer Male Surgical History: Reports: TURP-Transurethral Resection of Prostate Musculoskeletal Surgical History: Reports: Shoulder Surgery Other Musculoskeletal Surgeries/Procedures:: Patient reports "back surgery and bilateraly shoulder surgery" Social & Family History - Family History Family Medical History: Noncontributory - Tobacco Use Smoking Status *Q: Former Smoker (not for over 20 years) Used Tobacco, but Quit: Yes Month Tobacco Last Used: years ago Second Hand Smoke Exposure: No - Caffeine Use Caffeine Use: Reports: Coffee - Recreational Drug Use Recreational Drug Use: No H&P Review of Systems - Review of Systems: Review Of Systems: ROS reveals no pertinent complaints other than HPI. Exam - Exam Exam: See Below - Vital Signs Vital Signs: Last Vital Signs Temp 36.4 C 08/26/16 11:50 Pulse 71 08/26/16 11:50 Resp 22 H 08/26/16 11:50 BP 154/77 H 08/26/16 11:50 Pulse Ox 93 L 08/26/16 11:50 Weight: 77.474 kg - Exam Physical Exam Comments:: Constitutional: No acute distress Psychiatric: Mood/Affect: normal/appropriate Neurological: Mental Status: General: Normal activity, good hygiene, appropriate appearance. Level of consciousness: Awake, alert. Orientation: Oriented to person, place, year, month not date. Concentration/Attention Span: Normal. Comprehension/Praxis: Able to perform a three step command. Fund of Knowledge/memory: Adequate remote recall. Language: Slow, a bit halting occasionally but otherwise fluent, with normal naming, normal repetition, no paraphasic errors. Normal grammar. Thought Content: Normal. Cranial Nerves: Pupils equally round and reactive to light. Visual lopez full to confrontation. Gaze conjugate, EOMI. Sensation intact and symmetric to light touch. Facial strength is full and symmetric. Palate elevates symmetrically. Normal shrug bilaterally. Tongue protrudes midline Motor: Normal tone in all groups. His right arm is not fully supinate, which he attributes to limitations of his right shoulder. Otherwise full strength Sensation: Sensation is intact to temperature and vibratory sense. Coordination: Finger to nose, heel to wilkerson and rapid alternating movements are intact. Gait: Walks with a walker, slightly wide-based. He had difficulty standing from a chair HEENT: Eyes: non icteric, Mouth: moist mucus membranes GI: non tender Musculoskeletal: non tender Skin: no visible rash - Patient Data Lab Results last 24 hrs: Laboratory Results - last 24 hr 08/26/16 08/26/16 Range/Units 06:06 12:41 POC Glucose 103 125 H (60-110) mg/dL Result Diagrams: 08/26/16 00:31 08/26/16 00:31 Consult PN Assessment/Plan Procedures: Procedures ASSAY OF BLOOD/URIC ACID (12/07/14) ASSAY OF FREE THYROXINE (04/25/14) ASSAY OF MAGNESIUM (12/07/14) ASSAY THYROID STIM HORMONE (04/25/14) COMPLETE CBC W/AUTO DIFF WBC (08/23/16) COMPREHEN METABOLIC PANEL (08/23/16) ELECTROCARDIOGRAM TRACING (08/27/15) EMERGENCY DEPT VISIT (08/23/16) GLYCOSYLATED HEMOGLOBIN TEST (08/27/15) HEMATOCRIT (02/28/14) HEMOGLOBIN (02/28/14) HYDRATE IV INFUSION ADD-ON (08/23/16) LIPID PANEL (12/07/14) METABOLIC PANEL TOTAL CA (12/19/13) OFFICE/OUTPATIENT VISIT EST (08/27/15) OFFICE/OUTPATIENT VISIT EST (12/10/14) OFFICE/OUTPATIENT VISIT EST (04/26/14) OFFICE/OUTPATIENT VISIT EST (08/29/13) OFFICE/OUTPATIENT VISIT EST (07/19/13) PROTHROMBIN TIME (08/27/15) ROUTINE VENIPUNCTURE (08/23/16) THER/PROPH/DIAG IV INF INIT (08/23/16) THROMBOPLASTIN TIME PARTIAL (08/27/15) URINALYSIS AUTO W/SCOPE (08/23/16) URINE CULTURE/COLONY COUNT (08/23/16) (1) Ataxia SNOMED Code(s): 94091770 Code(s): R27.0 - ATAXIA, UNSPECIFIED Current Visit: Yes Assessment:: 86 year old man admitted with 1-2 week history of speech changes, ataxia, myoclonus. My impression of speech complaints is more encephalopathy than aphasia, and other than ataxia, I don't see clear focal deficits, which lowers my suspicion for focal ischemia. MRI brain not an option (pacemaker), but CT head after 1-2 weeks of symptoms at least rules out large stroke (no evidence of ischemia in left MCA distribution). I suspect gait abnormalities, speech changes are likely related to UTI. Myoclonus likely toxic metabolic related to UTI, tramadol and / or ciprofloxacin. I recommend holding Keppra to see if myoclonus returns with same severity. Hold tramadol. Keppra may be restarted if myoclonus functionally limiting. If he does not improve clinically , more extensive evaluation including evaluation for DEDICATED DRIVER infection, EEG may be warranted. (2) Myoclonus SNOMED Code(s): 98485239, 069396146 Code(s): G25.3 - MYOCLONUS Current Visit: Yes Problem List Initiated/Reviewed/Updated: Yes Requesting Provider: kirsten
[2016-08-26] MEDS: Acetaminophen 325 MG Tab PO PRN (16:26)
[2016-08-26] MEDS: Insulin Detemir 100 Units/ML 3 ML Pen SUBCUT SCH (20:43)
[2016-08-26] MEDS: Fluticasone Propionate Nasal Spray 16 GM Bottle NASBOTH SCH (23:21)
[2016-08-27] MEDS: ceFAZolin 1 GM in Premix Bag 1 BAG IV SCH ×3 (07:50→23:44)
[2016-08-27] MEDS: Acetaminophen 325 MG Tab PO PRN ×2 (08:03→20:44)
[2016-08-27] MEDS: Verapamil 240 MG Tab.ER PO SCH (08:04)
[2016-08-27] MEDS: Docusate Sodium 100 MG Cap PO SCH ×2 (08:04→20:48)
[2016-08-27] MEDS: Metoprolol Tartrate 25 MG Tab PO SCH (08:05)
[2016-08-27] MEDS: Fluticasone Propionate Nasal Spray 16 GM Bottle NASBOTH SCH ×3 (08:06→20:54)
--- NOTE | 2016-08-27 08:10 | PCM.PN ---
Addendum entered and electronically signed by Cris Rivas NP 08/27/16 14: 54: Spoke with Dr. Lentz, who will kindly accept patient upon Transfer to [facility]. Original Note: - General Info Date of Service: 08/27/16 Admission Dx/Problem (Free Text): Admission Diagnosis/Problem Admission Diagnosis/Problem UTI Functional Status: Reports: pain controlled, tolerating diet, ambulating, urinating - Review of Systems General: Reports: No Symptoms. Denies: Fever HEENT: Reports: sinus congestion. Denies: sore throat, rhinitis Pulmonary: Reports: no symptoms Cardiovascular: Reports: No Symptoms. Denies: Chest Pain, Palpitations Gastrointestinal: Reports: No symptoms, Flatus. Denies: Abdominal pain, Nausea , Vomiting Genitourinary: Reports: no symptoms. Denies: dysuria, frequency, burning Musculoskeletal: Reports: back pain (chronic) Skin: Reports: no symptoms Neurological: Reports: No Symptoms Psychiatric: Reports: no symptoms - Patient Data Vitals - most recent: Last Vital Signs Temp 98.0 F 08/27/16 07:58 Pulse 80 08/27/16 08:05 Resp 20 08/27/16 07:58 BP 108/61 08/27/16 08:05 Pulse Ox 92 L 08/27/16 07:58 Weight - most recent: 77.474 kg I&O - last 24 hours: Intake & Output 08/26/16 08/27/16 08/27/16 22:59 06:59 14:59 Intake Total 400 550 Output Total 480 1425 Balance -80 -875 Lab Results last 24 hrs: Laboratory Results - last 24 hr 08/26/16 08/26/16 08/26/16 Range/Units 12:41 17:09 20:41 WBC (4.0-11.0) K/uL RBC (4.50-5.90) M/uL Hgb (13.0-17.0) g/dL Hct (38.0-50.0) % MCV (80.0-98.0) fL MCH (27.0-32.0) pg MCHC (31.0-37.0) g/dL RDW Std Deviation (28.0-62.0) fl RDW Coeff of Meera (11.0-15.0) % Plt Count (150-400) K/uL MPV (7.40-12.00) fL Neut % (Auto) (48.0-80.0) % Lymph % (Auto) (16.0-40.0) % [place] % (Auto) (0.0-15.0) % Eos % (Auto) (0.0-7.0) % Baso % (Auto) (0.0-1.5) % Neut # (Auto) (1.4-5.7) K/uL Lymph # (Auto) (0.6-2.4) K/uL [place] # (Auto) (0.0-0.8) K/uL Eos # (Auto) (0.0-0.7) K/uL Baso # (Auto) (0.0-0.1) K/uL Nucleated RBC % /100WBC Nucleated RBCs # K/uL INR (0.86-1.11) Sodium (136-146) mmol/L Potassium (3.5-5.1) mmol/L Chloride (98-110) mmol/L Carbon Dioxide (21-31) mmol/L BUN (6.0-23.0) mg/dL Creatinine (0.6-1.5) mg/dL Est Cr Clr Drug Dosing mL/min Estimated GFR (MDRD) ml/min Glucose (60-110) mg/dL POC Glucose 125 H 158 H 141 H (60-110) mg/dL Calcium (8.8-10.8) mg/dL Magnesium (1.5-2.3) mEq/L 08/27/16 08/27/16 08/27/16 Range/Units 04:35 04:35 04:35 WBC 5.88 (4.0-11.0) K/uL RBC 3.75 L (4.50-5.90) M/uL Hgb 11.3 L (13.0-17.0) g/dL Hct 34.8 L (38.0-50.0) % MCV 92.8 (80.0-98.0) fL MCH 30.1 (27.0-32.0) pg MCHC 32.5 (31.0-37.0) g/dL RDW Std Deviation 44.3 (28.0-62.0) fl RDW Coeff of Meera 13 (11.0-15.0) % Plt Count 269 (150-400) K/uL MPV 8.70 (7.40-12.00) fL Neut % (Auto) 68.5 (48.0-80.0) % Lymph % (Auto) 19.9 (16.0-40.0) % [place] % (Auto) 8.2 (0.0-15.0) % Eos % (Auto) 2.7 (0.0-7.0) % Baso % (Auto) 0.7 (0.0-1.5) % Neut # (Auto) 4.0 (1.4-5.7) K/uL Lymph # (Auto) 1.2 (0.6-2.4) K/uL [place] # (Auto) 0.5 (0.0-0.8) K/uL Eos # (Auto) 0.2 (0.0-0.7) K/uL Baso # (Auto) 0.0 (0.0-0.1) K/uL Nucleated RBC % 0.0 /100WBC Nucleated RBCs # 0 K/uL INR 1.70 H (0.86-1.11) Sodium 138 (136-146) mmol/L Potassium 3.8 (3.5-5.1) mmol/L Chloride 103 (98-110) mmol/L Carbon Dioxide 24 (21-31) mmol/L BUN 22 (6.0-23.0) mg/dL Creatinine 1.2 (0.6-1.5) mg/dL Est Cr Clr Drug Dosing 41.17 mL/min Estimated GFR (MDRD) 57.1 ml/min Glucose 97 (60-110) mg/dL POC Glucose (60-110) mg/dL Calcium 9.3 (8.8-10.8) mg/dL Magnesium 1.7 (1.5-2.3) mEq/L Med Orders - Current: Current Medications Acetaminophen (Tylenol) 650 mg PO Q4H PRN PRN Reason: Pain Last Admin: 08/27/16 08:03 Dose: 650 mg Bisacodyl (Dulcolax) 5 mg PO DAILY PRN PRN Reason: Constipation Last Admin: 08/26/16 16:26 Dose: 5 mg Docusate Sodium (Colace) 100 mg PO BID GIANNA Last Admin: 08/27/16 08:04 Dose: 100 mg Fluticasone Propionate (Flonase) 1 gm NASBOTH BID [facility] Hydrochlorothiazide (Hydrochlorothiazide) 25 mg PO DAILY [facility] Cefazolin Sodium/Dextrose 1 gm (/ Premix) 50 mls @ 100 mls/hr IV Q8H [facility] Last Admin: 08/27/16 07:50 Dose: 100 mls/hr Insulin Detemir (Levemir) 20 unit SUBCUT BEDTIME [facility] Last Admin: 08/26/16 20:43 Dose: 20 units Metoprolol Tartrate (Lopressor) 25 mg PO DAILY [facility] Last Admin: 08/27/16 08:05 Dose: 25 mg Morphine Sulfate (Morphine) 2 mg IVPUSH Q3H PRN PRN Reason: Pain Ondansetron HCl (Zofran Odt) 4 mg PO Q4H PRN PRN Reason: nausea, able to take PO Oxybutynin Chloride (Oxybutynin) 5 mg PO BID PRN PRN Reason: Dysuria Last Admin: 08/26/16 22:29 Dose: 5 mg Sodium Chloride (Saline Flush) 10 ml FLUSH ASDIRECTED PRN PRN Reason: Keep Vein Open Sodium Chloride (Saline Flush) 2.5 ml FLUSH ASDIRECTED PRN PRN Reason: Keep Vein Open Verapamil HCl (Calan Sr) 240 mg PO DAILY [facility] Last Admin: 08/27/16 08:04 Dose: 240 mg Warfarin Sodium (Coumadin) 5 mg PO DAILY@1400 [facility] Discontinued Medications Fluticasone Propionate (Flonase) 1 gm NASBOTH DAILY [facility] Last Admin: 08/27/16 08:06 Dose: 1 spray Hydrochlorothiazide (Hydrochlorothiazide) 25 mg PO DAILY [facility] Hydrochlorothiazide (Hydrochlorothiazide) 25 mg PO BEDTIME [facility] Last Admin: 08/26/16 20:50 Dose: 25 mg Ceftriaxone Sodium/Dextrose 1 (gm/ Premix) 50 mls @ 100 mls/hr IV DAILY ONE Stop: 08/26/16 02:30 Last Admin: 08/26/16 02:12 Dose: 100 mls/hr Levetiracetam (Keppra) 500 mg PO NOW ONE Stop: 08/26/16 00:27 Last Admin: 08/26/16 01:22 Dose: 500 mg Levetiracetam (Keppra) 500 mg PO BID [facility] Last Admin: 08/26/16 08:21 Dose: 500 mg Morphine Sulfate (Morphine) 4 mg IVPUSH Q2H PRN PRN Reason: Pain Last Admin: 08/26/16 05:34 Dose: 4 mg Non-Formulary Medication (Verapamil Hcl) 240 mg PO DAILY [facility] Temazepam (Restoril) 15 mg PO BEDTIME PRN PRN Reason: Sleep Warfarin Sodium (Coumadin) 5 mg PO DAILY GIANNA - Exam General: alert, oriented, cooperative Neck: supple Lungs: Clear to auscultation, Normal respiratory effort Cardiovascular: Regular Rate, Regular Rhythm Abdomen: bowel sounds present, soft, no tenderness, no distension Extremities: no edema, normal pulses Neurological: no new focal deficit, other (no myclonus noted) Psy/Mental Status: alert, normal affect, normal mood - Problem List & Annotations (1) Myoclonus SNOMED Code(s): 67053769, 092747234 Code(s): G25.3 - MYOCLONUS Status: Acute Current Visit: Yes (2) UTI (urinary tract infection) SNOMED Code(s): 18433972 Code(s): N39.0 - URINARY TRACT INFECTION, SITE NOT SPECIFIED Status: Acute Current Visit: Yes Qualifiers: Hematuria presence: without hematuria (3) Prostatitis SNOMED Code(s): 4706108 Code(s): N41.9 - INFLAMMATORY DISEASE OF PROSTATE, UNSPECIFIED Status: Acute Current Visit: Yes Qualifiers: Prostatitis type: acute Qualified Code(s): N41.0 - Acute prostatitis (4) Expressive aphasia SNOMED Code(s): 486908415 Code(s): R47.01 - APHASIA Status: Acute Current Visit: Yes (5) HTN (hypertension) SNOMED Code(s): 01504361 Code(s): I10 - ESSENTIAL (PRIMARY) HYPERTENSION Status: Chronic Current Visit: Yes Qualifiers: Hypertension type: essential hypertension Qualified Code(s): I10 - Essential (primary) hypertension (6) Pacemaker SNOMED Code(s): 601012911, 171852698 Code(s): Z95.0 - PRESENCE OF CARDIAC PACEMAKER Status: Chronic Current Visit: Yes (7) Afib SNOMED Code(s): 82163287 Code(s): I48.91 - UNSPECIFIED ATRIAL FIBRILLATION Status: Chronic Current Visit: Yes Qualifiers: Atrial fibrillation type: unspecified Qualified Code(s): I48.91 - Unspecified atrial fibrillation (8) DM type 2 (diabetes mellitus, type 2) SNOMED Code(s): 16074911 Code(s): E11.9 - TYPE 2 DIABETES MELLITUS WITHOUT COMPLICATIONS Status: Chronic Current Visit: Yes Qualifiers: Diabetes mellitus complication status: without complication Diabetes mellitus skilled nursing insulin use: with skilled nursing use Qualified Code(s): E11.9 - Type 2 diabetes mellitus without complications; Z79.4 - buttermaker (current) use of insulin - Problem List Review Problem List Initiated/Reviewed/Updated: Yes - My Orders Last 24 Hours: My Active Orders 08/26/16 08:14 Acetaminophen [Tylenol] 650 mg PO Q4H PRN 08/26/16 08:15 Morphine 2 mg IVPUSH Q3H PRN 08/26/16 08:30 ceFAZolin [Ancef] 1 gm Premix Bag 1 bag IV Q8H 08/26/16 11:26 Telemetry Monitoring [Cardiac Monitoring] [RC] Q8H 08/26/16 12:07 Consult to Physician [CONS] Routine 08/26/16 12:08 Notify Provider Consults [RC] ASDIRECTED 08/26/16 21:00 Insulin Detemir [Levemir] 20 unit SUBCUT BEDTIME 08/27/16 08:07 Consult to Physical Therapy [PT Evaluation and Treatment] [CONS] Routine 08/27/16 09:00 Fluticasone Propionate [Flonase] 1 gm NASBOTH BID Hydrochlorothiazide 25 mg PO DAILY 08/28/16 05:00 BMP [BASIC METABOLIC PANEL,BMP] [CHEM] DAILY CBC WITH AUTO DIFF [HEME] DAILY MAGNESIUM [CHEM] DAILY 08/29/16 05:00 BMP [BASIC METABOLIC PANEL,BMP] [CHEM] DAILY CBC WITH AUTO DIFF [HEME] DAILY MAGNESIUM [CHEM] DAILY - Plan Plan:: This 86 year old male admitted with aphasia and UTI 1. Aphasia: Resolved. Likely secondary to UTI and acute illness. Appreciate Dr. Macdonald's consultation. 2. UTI/Prostatitis: Ancef 1 g IV Q8, will monitor. UC pending. 3. Afib: Continue Coumadin and Metoprolol and Verapamil. 4. HTN: Continue HCTZ 5. DM type 2: Continue Levemir. Add Novolog SSI with meals. 6. Generalized weakness: PT to eval and treat VTE prophylaxis: On Coumadin. Dispo: Pending placement in SNF for short term rehabilitation on Wednesday.
[2016-08-27] MEDS: Hydrochlorothiazide 25 MG Tab PO SCH (09:14)
[2016-08-27] MEDS ORDERED: Warfarin 5 MG Tab PO SCH (14:00)
[2016-08-27] MEDS: Insulin Detemir 100 Units/ML 3 ML Pen SUBCUT SCH (20:38)
[2016-08-27] MEDS: Temazepam 15 MG Cap PO PRN (20:43)
[2016-08-28 05:21] LABS: CHLORIDE,CL 104 mmol/L (98-110); SODIUM,NA 138 mmol/L (136-146)
--- NOTE | 2016-08-28 07:55 | PCM.PN ---
- General Info Date of Service: 08/28/16 Admission Dx/Problem (Free Text): Admission Diagnosis/Problem Admission Diagnosis/Problem UTI Functional Status: Reports: pain controlled, tolerating diet, ambulating, urinating - Review of Systems General: Reports: No Symptoms. Denies: Fever HEENT: Reports: sinus congestion (improving with Flonase.). Denies: eye pain, sore throat, rhinitis Pulmonary: Reports: no symptoms. Denies: shortness of breath, cough, sputum Cardiovascular: Reports: No Symptoms. Denies: Chest Pain, Palpitations, Edema Gastrointestinal: Reports: No symptoms. Denies: Abdominal pain, Nausea, Vomiting Genitourinary: Reports: no symptoms. Denies: dysuria, frequency, burning Musculoskeletal: Reports: back pain (chronic, improved with Tylenol.) Skin: Reports: no symptoms Neurological: Reports: No Symptoms Psychiatric: Reports: no symptoms - Patient Data Vitals - most recent: Last Vital Signs Temp 98 F 08/28/16 04:00 Pulse 81 08/28/16 04:00 Resp 18 08/28/16 04:00 BP 139/76 08/28/16 04:00 Pulse Ox 95 08/28/16 04:00 Weight - most recent: 77.474 kg I&O - last 24 hours: Intake & Output 08/27/16 08/28/16 08/28/16 22:59 06:59 14:59 Intake Total 750 250 Output Total 655 850 Balance 95 -600 Lab Results last 24 hrs: Laboratory Results - last 24 hr 08/27/16 08/27/16 08/27/16 Range/Units 06:27 11:29 16:15 WBC (4.0-11.0) K/uL RBC (4.50-5.90) M/uL Hgb (13.0-17.0) g/dL Hct (38.0-50.0) % MCV (80.0-98.0) fL MCH (27.0-32.0) pg MCHC (31.0-37.0) g/dL RDW Std Deviation (28.0-62.0) fl RDW Coeff of Meera (11.0-15.0) % Plt Count (150-400) K/uL MPV (7.40-12.00) fL Neut % (Auto) (48.0-80.0) % Lymph % (Auto) (16.0-40.0) % [place] % (Auto) (0.0-15.0) % Eos % (Auto) (0.0-7.0) % Baso % (Auto) (0.0-1.5) % Neut # (Auto) (1.4-5.7) K/uL Lymph # (Auto) (0.6-2.4) K/uL [place] # (Auto) (0.0-0.8) K/uL Eos # (Auto) (0.0-0.7) K/uL Baso # (Auto) (0.0-0.1) K/uL Nucleated RBC % /100WBC Nucleated RBCs # K/uL INR (0.86-1.11) Sodium (136-146) mmol/L Potassium (3.5-5.1) mmol/L Chloride (98-110) mmol/L Carbon Dioxide (21-31) mmol/L BUN (6.0-23.0) mg/dL Creatinine (0.6-1.5) mg/dL Est Cr Clr Drug Dosing mL/min Estimated GFR (MDRD) ml/min Glucose (60-110) mg/dL POC Glucose 106 116 H 125 H (60-110) mg/dL Calcium (8.8-10.8) mg/dL Magnesium (1.5-2.3) mEq/L 08/27/16 08/28/16 08/28/16 Range/Units 20:37 04:39 04:39 WBC 5.54 (4.0-11.0) K/uL RBC 3.89 L (4.50-5.90) M/uL Hgb 11.8 L (13.0-17.0) g/dL Hct 36.2 L (38.0-50.0) % MCV 93.1 (80.0-98.0) fL MCH 30.3 (27.0-32.0) pg MCHC 32.6 (31.0-37.0) g/dL RDW Std Deviation 45.2 (28.0-62.0) fl RDW Coeff of Meera 14 (11.0-15.0) % Plt Count 237 (150-400) K/uL MPV 8.50 (7.40-12.00) fL Neut % (Auto) 61.1 (48.0-80.0) % Lymph % (Auto) 23.6 (16.0-40.0) % [place] % (Auto) 11.2 (0.0-15.0) % Eos % (Auto) 3.4 (0.0-7.0) % Baso % (Auto) 0.7 (0.0-1.5) % Neut # (Auto) 3.4 (1.4-5.7) K/uL Lymph # (Auto) 1.3 (0.6-2.4) K/uL [place] # (Auto) 0.6 (0.0-0.8) K/uL Eos # (Auto) 0.2 (0.0-0.7) K/uL Baso # (Auto) 0.0 (0.0-0.1) K/uL Nucleated RBC % 0.0 /100WBC Nucleated RBCs # 0 K/uL INR 1.49 H (0.86-1.11) Sodium (136-146) mmol/L Potassium (3.5-5.1) mmol/L Chloride (98-110) mmol/L Carbon Dioxide (21-31) mmol/L BUN (6.0-23.0) mg/dL Creatinine (0.6-1.5) mg/dL Est Cr Clr Drug Dosing mL/min Estimated GFR (MDRD) ml/min Glucose (60-110) mg/dL POC Glucose 136 H (60-110) mg/dL Calcium (8.8-10.8) mg/dL Magnesium (1.5-2.3) mEq/L 08/28/16 08/28/16 Range/Units 04:39 06:40 WBC (4.0-11.0) K/uL RBC (4.50-5.90) M/uL Hgb (13.0-17.0) g/dL Hct (38.0-50.0) % MCV (80.0-98.0) fL MCH (27.0-32.0) pg MCHC (31.0-37.0) g/dL RDW Std Deviation (28.0-62.0) fl RDW Coeff of Meera (11.0-15.0) % Plt Count (150-400) K/uL MPV (7.40-12.00) fL Neut % (Auto) (48.0-80.0) % Lymph % (Auto) (16.0-40.0) % [place] % (Auto) (0.0-15.0) % Eos % (Auto) (0.0-7.0) % Baso % (Auto) (0.0-1.5) % Neut # (Auto) (1.4-5.7) K/uL Lymph # (Auto) (0.6-2.4) K/uL [place] # (Auto) (0.0-0.8) K/uL Eos # (Auto) (0.0-0.7) K/uL Baso # (Auto) (0.0-0.1) K/uL Nucleated RBC % /100WBC Nucleated RBCs # K/uL INR (0.86-1.11) Sodium 138 (136-146) mmol/L Potassium 3.6 (3.5-5.1) mmol/L Chloride 104 (98-110) mmol/L Carbon Dioxide 24 (21-31) mmol/L BUN 21 (6.0-23.0) mg/dL Creatinine 1.1 (0.6-1.5) mg/dL Est Cr Clr Drug Dosing 44.91 mL/min Estimated GFR (MDRD) > 60.0 ml/min Glucose 99 (60-110) mg/dL POC Glucose 114 H (60-110) mg/dL Calcium 9.3 (8.8-10.8) mg/dL Magnesium 1.8 (1.5-2.3) mEq/L Med Orders - Current: Current Medications Acetaminophen (Tylenol) 650 mg PO Q4H PRN PRN Reason: Pain Last Admin: 08/27/16 20:44 Dose: 650 mg Bisacodyl (Dulcolax) 5 mg PO DAILY PRN PRN Reason: Constipation Last Admin: 08/26/16 16:26 Dose: 5 mg Docusate Sodium (Colace) 100 mg PO BID [facility] Last Admin: 08/27/16 20:48 Dose: Not Given Fluticasone Propionate (Flonase) 0 gm NASBOTH BID [facility] Last Admin: 08/27/16 20:54 Dose: 1 sprays Hydrochlorothiazide (Hydrochlorothiazide) 25 mg PO DAILY [facility] Last Admin: 08/27/16 09:14 Dose: 25 mg Cefazolin Sodium/Dextrose 1 gm (/ Premix) 50 mls @ 100 mls/hr IV Q8H [facility] Last Admin: 08/27/16 23:44 Dose: 100 mls/hr Insulin Detemir (Levemir) 20 unit SUBCUT BEDTIME [facility] Last Admin: 08/27/16 20:38 Dose: 20 units Metoprolol Tartrate (Lopressor) 25 mg PO DAILY [facility] Last Admin: 08/27/16 08:05 Dose: 25 mg Morphine Sulfate (Morphine) 2 mg IVPUSH Q3H PRN PRN Reason: Pain Ondansetron HCl (Zofran Odt) 4 mg PO Q4H PRN PRN Reason: nausea, able to take PO Oxybutynin Chloride (Oxybutynin) 5 mg PO BID PRN PRN Reason: Dysuria Last Admin: 08/26/16 22:29 Dose: 5 mg Sodium Chloride (Saline Flush) 10 ml FLUSH ASDIRECTED PRN PRN Reason: Keep Vein Open Sodium Chloride (Saline Flush) 2.5 ml FLUSH ASDIRECTED PRN PRN Reason: Keep Vein Open Temazepam (Restoril) 15 mg PO BEDTIME PRN PRN Reason: Insomnia Last Admin: 08/27/16 20:43 Dose: 15 mg Verapamil HCl (Calan Sr) 240 mg PO DAILY [facility] Last Admin: 08/27/16 08:04 Dose: 240 mg Warfarin Sodium (Coumadin) 5 mg PO DAILY@1400 [facility] Last Admin: 08/27/16 13:49 Dose: 5 mg Discontinued Medications Fluticasone Propionate (Flonase) 1 gm NASBOTH DAILY [facility] Last Admin: 08/27/16 08:06 Dose: 1 spray Hydrochlorothiazide (Hydrochlorothiazide) 25 mg PO DAILY [facility] Hydrochlorothiazide (Hydrochlorothiazide) 25 mg PO BEDTIME [facility] Last Admin: 08/26/16 20:50 Dose: 25 mg Ceftriaxone Sodium/Dextrose 1 (gm/ Premix) 50 mls @ 100 mls/hr IV DAILY ONE Stop: 08/26/16 02:30 Last Admin: 08/26/16 02:12 Dose: 100 mls/hr Levetiracetam (Keppra) 500 mg PO NOW ONE Stop: 08/26/16 00:27 Last Admin: 08/26/16 01:22 Dose: 500 mg Levetiracetam (Keppra) 500 mg PO BID [facility] Last Admin: 08/26/16 08:21 Dose: 500 mg Morphine Sulfate (Morphine) 4 mg IVPUSH Q2H PRN PRN Reason: Pain Last Admin: 08/26/16 05:34 Dose: 4 mg Non-Formulary Medication (Verapamil Hcl) 240 mg PO DAILY [facility] Temazepam (Restoril) 15 mg PO BEDTIME PRN PRN Reason: Sleep Warfarin Sodium (Coumadin) 5 mg PO DAILY [facility] - Exam Quality Assessment: DVT prophylaxis. No: supplemental oxygen General: alert, oriented, cooperative HEENT: Pupils equal, Pupils reactive, EOMI, Mucous membr. moist/pink Neck: supple Lungs: Clear to auscultation, Normal respiratory effort Cardiovascular: Regular Rate, Regular Rhythm Abdomen: bowel sounds present, soft, no tenderness, no distension Extremities: no edema, normal pulses Neurological: no new focal deficit, normal speech, strength equal bilateral, reflexes equal bilateral, other (no noted myoclonus.) Psy/Mental Status: alert, normal affect, normal mood - Problem List & Annotations (1) UTI (urinary tract infection) SNOMED Code(s): 66645621 Code(s): N39.0 - URINARY TRACT INFECTION, SITE NOT SPECIFIED Status: Acute Current Visit: Yes Qualifiers: Hematuria presence: without hematuria (2) Prostatitis SNOMED Code(s): 8293844 Code(s): N41.9 - INFLAMMATORY DISEASE OF PROSTATE, UNSPECIFIED Status: Acute Current Visit: Yes Qualifiers: Prostatitis type: acute Qualified Code(s): N41.0 - Acute prostatitis (3) Myoclonus SNOMED Code(s): 08991018, 505970092 Code(s): G25.3 - MYOCLONUS Status: Resolved Current Visit: Yes (4) Expressive aphasia SNOMED Code(s): 941752100 Code(s): R47.01 - APHASIA Status: Resolved Current Visit: Yes (5) HTN (hypertension) SNOMED Code(s): 27407083 Code(s): I10 - ESSENTIAL (PRIMARY) HYPERTENSION Status: Chronic Current Visit: Yes Qualifiers: Hypertension type: essential hypertension Qualified Code(s): I10 - Essential (primary) hypertension (6) Pacemaker SNOMED Code(s): 568294702, 176177672 Code(s): Z95.0 - PRESENCE OF CARDIAC PACEMAKER Status: Chronic Current Visit: Yes (7) Afib SNOMED Code(s): 47201907 Code(s): I48.91 - UNSPECIFIED ATRIAL FIBRILLATION Status: Chronic Current Visit: Yes Qualifiers: Atrial fibrillation type: unspecified Qualified Code(s): I48.91 - Unspecified atrial fibrillation (8) DM type 2 (diabetes mellitus, type 2) SNOMED Code(s): 57411794 Code(s): E11.9 - TYPE 2 DIABETES MELLITUS WITHOUT COMPLICATIONS Status: Chronic Current Visit: Yes Qualifiers: Diabetes mellitus complication status: without complication Diabetes mellitus intermediate project manager insulin use: with fpc use Qualified Code(s): E11.9 - Type 2 diabetes mellitus without complications; Z79.4 - long-term (current) use of insulin - Problem List Review Problem List Initiated/Reviewed/Updated: Yes - My Orders Last 24 Hours: My Active Orders 08/27/16 08:07 Consult to Physical Therapy [PT Evaluation and Treatment] [CONS] Routine 08/27/16 09:00 Fluticasone Propionate [Flonase] 0 gm NASBOTH BID Hydrochlorothiazide 25 mg PO DAILY 08/27/16 10:27 Pocket Stitcher Discontinue [Cardiac Monitoring Discontinue] [RC] Click To Edit 08/27/16 11:56 Temazepam [Restoril] 15 mg PO BEDTIME PRN 08/29/16 05:00 BMP [BASIC METABOLIC PANEL,BMP] [CHEM] DAILY CBC WITH AUTO DIFF [HEME] DAILY MAGNESIUM [CHEM] DAILY - Plan Plan:: This 86 year old male admitted with aphasia and UTI 1. UTI/Prostatitis: Will discontinue Ancef 1 g IV Q8. Chane to oral, Keflex 500 mg Q6hr. UC mixed maggy <1,000. 2. Generalized weakness: PT to eval and treat, no acute needs. Encouraged to be up ambulating with nursing staff at least 3-4 times daily and up to chair for all meals. 3. Afib: Continue Coumadin and Metoprolol and Verapamil. 4. HTN: Continue HCTZ 5. DM type 2: Continue Levemir. Add Novolog SSI with meals. VTE prophylaxis: On Coumadin. Dispo: Pending placement in SNF for short term rehabilitation on Wednesday. Dr. Lentz contacted and will kindly accept patient for transfer to [place] on Wednesday.
[2016-08-28] MEDS: Metoprolol Tartrate 25 MG Tab PO SCH (08:09)
[2016-08-28] MEDS: Docusate Sodium 100 MG Cap PO SCH ×2 (08:09→20:25)
[2016-08-28] MEDS: Verapamil 240 MG Tab.ER PO SCH (08:09)
[2016-08-28] MEDS: ceFAZolin 1 GM in Premix Bag 1 BAG IV SCH (08:09)
[2016-08-28] MEDS: Hydrochlorothiazide 25 MG Tab PO SCH (08:10)
[2016-08-28] MEDS: Fluticasone Propionate Nasal Spray 16 GM Bottle NASBOTH SCH ×2 (08:10→20:26)
[2016-08-28] MEDS: Acetaminophen 325 MG Tab PO PRN ×2 (08:38→20:25)
[2016-08-28] MEDS: Insulin Aspart 100 Units/ML 3 ML Pen SUBCUT SCH ×2 (12:43→16:48)
[2016-08-28] MEDS: Cephalexin 500 MG Cap PO SCH ×3 (13:08→23:42)
[2016-08-28] MEDS ORDERED: Warfarin 2.5 MG Tab PO SCH (14:00)
[2016-08-28] MEDS: Insulin Detemir 100 Units/ML 3 ML Pen SUBCUT SCH (21:14)
[2016-08-29] MEDS: Cephalexin 500 MG Cap PO SCH ×3 (06:28→18:04)
[2016-08-29 06:45] LABS: CHLORIDE,CL 101 mmol/L (98-110); SODIUM,NA 138 mmol/L (136-146)
[2016-08-29] MEDS: Insulin Aspart 100 Units/ML 3 ML Pen SUBCUT SCH ×3 (07:12→17:24)
[2016-08-29] MEDS: Docusate Sodium 100 MG Cap PO SCH ×2 (08:51→20:36)
[2016-08-29] MEDS: Verapamil 240 MG Tab.ER PO SCH (08:51)
[2016-08-29] MEDS: Metoprolol Tartrate 25 MG Tab PO SCH (08:51)
[2016-08-29] MEDS: Hydrochlorothiazide 25 MG Tab PO SCH (08:51)
[2016-08-29] MEDS: Fluticasone Propionate Nasal Spray 16 GM Bottle NASBOTH SCH ×2 (08:52→20:44)
--- NOTE | 2016-08-29 13:03 | PCM.PN ---
- Review of Systems Systems Review Comment:: no complaints. able to stand up from chair by himself. - Patient Data Vitals - most recent: Last Vital Signs Temp 36.8 C 08/29/16 12:00 Pulse 91 08/29/16 12:00 Resp 18 08/29/16 12:00 BP 114/58 L 08/29/16 12:00 Pulse Ox 93 L 08/29/16 12:00 Weight - most recent: 77.474 kg I&O - last 24 hours: Intake & Output 08/28/16 08/29/16 08/29/16 22:59 06:59 14:59 Intake Total 480 350 Output Total 375 500 Balance 105 -150 Lab Results last 24 hrs: Laboratory Results - last 24 hr 08/28/16 08/28/16 08/29/16 Range/Units 16:27 21:12 05:18 WBC 7.09 (4.0-11.0) K/uL RBC 4.08 L (4.50-5.90) M/uL Hgb 12.4 L (13.0-17.0) g/dL Hct 38.1 (38.0-50.0) % MCV 93.4 (80.0-98.0) fL MCH 30.4 (27.0-32.0) pg MCHC 32.5 (31.0-37.0) g/dL RDW Std Deviation 45.6 (28.0-62.0) fl RDW Coeff of Meera 13 (11.0-15.0) % Plt Count 265 (150-400) K/uL MPV 8.70 (7.40-12.00) fL Neut % (Auto) 57.6 (48.0-80.0) % Lymph % (Auto) 27.9 (16.0-40.0) % [place] % (Auto) 10.7 (0.0-15.0) % Eos % (Auto) 3.1 (0.0-7.0) % Baso % (Auto) 0.7 (0.0-1.5) % Neut # (Auto) 4.1 (1.4-5.7) K/uL Lymph # (Auto) 2.0 (0.6-2.4) K/uL [place] # (Auto) 0.8 (0.0-0.8) K/uL Eos # (Auto) 0.2 (0.0-0.7) K/uL Baso # (Auto) 0.1 (0.0-0.1) K/uL Nucleated RBC % 0.0 /100WBC Nucleated RBCs # 0 K/uL INR (0.86-1.11) Sodium (136-146) mmol/L Potassium (3.5-5.1) mmol/L Chloride (98-110) mmol/L Carbon Dioxide (21-31) mmol/L BUN (6.0-23.0) mg/dL Creatinine (0.6-1.5) mg/dL Est Cr Clr Drug Dosing mL/min Estimated GFR (MDRD) ml/min Glucose (60-110) mg/dL POC Glucose 117 H 221 H (60-110) mg/dL Calcium (8.8-10.8) mg/dL Magnesium (1.5-2.3) mEq/L 08/29/16 08/29/16 08/29/16 Range/Units 05:18 05:18 06:31 WBC (4.0-11.0) K/uL RBC (4.50-5.90) M/uL Hgb (13.0-17.0) g/dL Hct (38.0-50.0) % MCV (80.0-98.0) fL MCH (27.0-32.0) pg MCHC (31.0-37.0) g/dL RDW Std Deviation (28.0-62.0) fl RDW Coeff of Meera (11.0-15.0) % Plt Count (150-400) K/uL MPV (7.40-12.00) fL Neut % (Auto) (48.0-80.0) % Lymph % (Auto) (16.0-40.0) % [place] % (Auto) (0.0-15.0) % Eos % (Auto) (0.0-7.0) % Baso % (Auto) (0.0-1.5) % Neut # (Auto) (1.4-5.7) K/uL Lymph # (Auto) (0.6-2.4) K/uL [place] # (Auto) (0.0-0.8) K/uL Eos # (Auto) (0.0-0.7) K/uL Baso # (Auto) (0.0-0.1) K/uL Nucleated RBC % /100WBC Nucleated RBCs # K/uL INR 1.69 H (0.86-1.11) Sodium 138 (136-146) mmol/L Potassium 3.9 (3.5-5.1) mmol/L Chloride 101 (98-110) mmol/L Carbon Dioxide 27 (21-31) mmol/L BUN 26 H (6.0-23.0) mg/dL Creatinine 1.0 (0.6-1.5) mg/dL Est Cr Clr Drug Dosing 49.40 mL/min Estimated GFR (MDRD) > 60.0 ml/min Glucose 92 (60-110) mg/dL POC Glucose 99 (60-110) mg/dL Calcium 9.3 (8.8-10.8) mg/dL Magnesium 1.8 (1.5-2.3) mEq/L Med Orders - Current: Current Medications Acetaminophen (Tylenol) 650 mg PO Q4H PRN PRN Reason: Pain Last Admin: 08/28/16 20:25 Dose: 650 mg Bisacodyl (Dulcolax) 5 mg PO DAILY PRN PRN Reason: Constipation Last Admin: 08/26/16 16:26 Dose: 5 mg Cephalexin (Keflex) 500 mg PO Q6HR [facility] Last Admin: 08/29/16 12:02 Dose: 500 mg Docusate Sodium (Colace) 100 mg PO BID [facility] Last Admin: 08/29/16 08:51 Dose: 100 mg Fluticasone Propionate (Flonase) 0 gm NASBOTH BID [facility] Last Admin: 08/29/16 08:52 Dose: 2 sprays Hydrochlorothiazide (Hydrochlorothiazide) 25 mg PO DAILY [facility] Last Admin: 08/29/16 08:51 Dose: 25 mg Insulin Aspart (Novolog) 0 unit SUBCUT TIDAC [facility] PRN Reason: Protocol Last Admin: 08/29/16 11:57 Dose: Not Given Insulin Detemir (Levemir) 20 unit SUBCUT BEDTIME [facility] Last Admin: 08/28/16 21:14 Dose: 20 units Metoprolol Tartrate (Lopressor) 25 mg PO DAILY [facility] Last Admin: 08/29/16 08:51 Dose: 25 mg Morphine Sulfate (Morphine) 2 mg IVPUSH Q3H PRN PRN Reason: Pain Last Admin: 08/28/16 23:34 Dose: 2 mg Ondansetron HCl (Zofran Odt) 4 mg PO Q4H PRN PRN Reason: nausea, able to take PO Oxybutynin Chloride (Oxybutynin) 5 mg PO BID PRN PRN Reason: Dysuria Last Admin: 08/26/16 22:29 Dose: 5 mg Sodium Chloride (Saline Flush) 10 ml FLUSH ASDIRECTED PRN PRN Reason: Keep Vein Open Sodium Chloride (Saline Flush) 2.5 ml FLUSH ASDIRECTED PRN PRN Reason: Keep Vein Open Temazepam (Restoril) 15 mg PO BEDTIME PRN PRN Reason: Insomnia Last Admin: 08/27/16 20:43 Dose: 15 mg Verapamil HCl (Calan Sr) 240 mg PO DAILY [facility] Last Admin: 08/29/16 08:51 Dose: 240 mg Warfarin Sodium (Coumadin) 5 mg PO DAILY@1400 [facility] Discontinued Medications Fluticasone Propionate (Flonase) 1 gm NASBOTH DAILY [facility] Last Admin: 08/27/16 08:06 Dose: 1 spray Hydrochlorothiazide (Hydrochlorothiazide) 25 mg PO DAILY [facility] Hydrochlorothiazide (Hydrochlorothiazide) 25 mg PO BEDTIME [facility] Last Admin: 08/26/16 20:50 Dose: 25 mg Ceftriaxone Sodium/Dextrose 1 (gm/ Premix) 50 mls @ 100 mls/hr IV DAILY ONE Stop: 08/26/16 02:30 Last Admin: 08/26/16 02:12 Dose: 100 mls/hr Cefazolin Sodium/Dextrose 1 gm (/ Premix) 50 mls @ 100 mls/hr IV Q8H [facility] Last Admin: 08/28/16 08:09 Dose: 100 mls/hr Levetiracetam (Keppra) 500 mg PO NOW ONE Stop: 08/26/16 00:27 Last Admin: 08/26/16 01:22 Dose: 500 mg Levetiracetam (Keppra) 500 mg PO BID [facility] Last Admin: 08/26/16 08:21 Dose: 500 mg Morphine Sulfate (Morphine) 4 mg IVPUSH Q2H PRN PRN Reason: Pain Last Admin: 08/26/16 05:34 Dose: 4 mg Non-Formulary Medication (Verapamil Hcl) 240 mg PO DAILY [facility] Temazepam (Restoril) 15 mg PO BEDTIME PRN PRN Reason: Sleep Warfarin Sodium (Coumadin) 5 mg PO DAILY [facility] Warfarin Sodium (Coumadin) 5 mg PO DAILY@1400 [facility] Last Admin: 08/27/16 13:49 Dose: 5 mg Warfarin Sodium (Coumadin) 7.5 mg PO 08/28/16@1400 [facility] Stop: 08/28/16 14:01 Last Admin: 08/28/16 13:08 Dose: 7.5 mg - Exam General: alert, oriented Lungs: Clear to auscultation Cardiovascular: Regular Rate, Regular Rhythm Abdomen: bowel sounds present, soft, no tenderness, no distension Extremities: no edema - Problem List Review Problem List Initiated/Reviewed/Updated: Yes - Plan Plan:: This 86 year old male admitted with aphasia and UTI 1. UTI/Prostatitis: continue keflex 2. Generalized weakness: improving 3. Afib: Continue Coumadin and Metoprolol and Verapamil. 4. HTN: Continue HCTZ 5. DM type 2: Continue Levemir. Add Novolog SSI with meals. VTE prophylaxis: On Coumadin. Dispo: Pending placement in SNF f
[2016-08-29] MEDS: Warfarin 5 MG Tab PO SCH (13:23)
[2016-08-29] MEDS ORDERED: Warfarin 2.5 MG Tab PO ONE (14:00)
[2016-08-29] MEDS: Insulin Detemir 100 Units/ML 3 ML Pen SUBCUT SCH (20:44)
[2016-08-30] MEDS: Cephalexin 500 MG Cap PO SCH ×4 (06:25→17:03)
[2016-08-30] MEDS: Insulin Aspart 100 Units/ML 3 ML Pen SUBCUT SCH ×3 (06:30→16:47)
[2016-08-30] MEDS: Hydrochlorothiazide 25 MG Tab PO SCH (08:24)
[2016-08-30] MEDS: Oxybutynin 5 MG Tab PO PRN (08:24)
[2016-08-30] MEDS: Verapamil 240 MG Tab.ER PO SCH (08:24)
[2016-08-30] MEDS: Metoprolol Tartrate 25 MG Tab PO SCH (08:24)
[2016-08-30] MEDS: Docusate Sodium 100 MG Cap PO SCH ×2 (08:24→20:06)
[2016-08-30] MEDS: Acetaminophen 325 MG Tab PO PRN ×2 (08:25→14:46)
[2016-08-30] MEDS: Fluticasone Propionate Nasal Spray 16 GM Bottle NASBOTH SCH ×2 (09:00→20:07)
[2016-08-30] MEDS: Warfarin 5 MG Tab PO SCH (13:16)
--- NOTE | 2016-08-30 14:07 | PCM.PN ---
- General Info Admission Dx/Problem (Free Text): Admission Diagnosis/Problem Admission Diagnosis/Problem UTI Subjective Update: Patient still complains of weakness and difficulty with urination that is improving Functional Status: Reports: pain controlled, tolerating diet, ambulating, urinating - Review of Systems General: Reports: Weakness HEENT: Reports: no symptoms Pulmonary: Reports: no symptoms Cardiovascular: Reports: No Symptoms Gastrointestinal: Reports: No symptoms Genitourinary: Reports: dysuria, incontinence Musculoskeletal: Reports: no symptoms Skin: Reports: no symptoms Neurological: Reports: No Symptoms Psychiatric: Reports: no symptoms - Patient Data Vitals - most recent: Last Vital Signs Temp 36.4 C 08/30/16 12:00 Pulse 79 08/30/16 12:00 Resp 12 08/30/16 12:00 BP 108/57 L 08/30/16 12:00 Pulse Ox 95 08/30/16 12:00 Weight - most recent: 77.474 kg I&O - last 24 hours: Intake & Output 08/29/16 08/30/16 08/30/16 22:59 06:59 14:59 Intake Total 800 640 Output Total 500 900 Balance 300 -260 Lab Results last 24 hrs: Laboratory Results - last 24 hr 08/29/16 08/29/16 08/29/16 Range/Units 11:16 16:49 20:46 INR (0.86-1.11) POC Glucose 130 H 111 H 143 H (60-110) mg/dL 08/30/16 08/30/16 Range/Units 05:02 11:18 INR 1.99 H (0.86-1.11) POC Glucose 203 H (60-110) mg/dL Med Orders - Current: Current Medications Acetaminophen (Tylenol) 650 mg PO Q4H PRN PRN Reason: Pain Last Admin: 08/30/16 08:25 Dose: 650 mg Bisacodyl (Dulcolax) 5 mg PO DAILY PRN PRN Reason: Constipation Last Admin: 08/26/16 16:26 Dose: 5 mg Cephalexin (Keflex) 500 mg PO Q6HR [facility] Last Admin: 08/30/16 12:11 Dose: 500 mg Docusate Sodium (Colace) 100 mg PO BID [facility] Last Admin: 08/30/16 08:24 Dose: 100 mg Fluticasone Propionate (Flonase) 0 gm NASBOTH BID [facility] Last Admin: 08/30/16 09:00 Dose: 2 sprays Hydrochlorothiazide (Hydrochlorothiazide) 25 mg PO DAILY [facility] Last Admin: 08/30/16 08:24 Dose: 25 mg Insulin Aspart (Novolog) 0 unit SUBCUT TIDAC [facility] PRN Reason: Protocol Last Admin: 08/30/16 11:48 Dose: 2 unit Insulin Detemir (Levemir) 20 unit SUBCUT BEDTIME [facility] Last Admin: 08/29/16 20:44 Dose: 20 units Metoprolol Tartrate (Lopressor) 25 mg PO DAILY [facility] Last Admin: 08/30/16 08:24 Dose: 25 mg Morphine Sulfate (Morphine) 2 mg IVPUSH Q3H PRN PRN Reason: Pain Last Admin: 08/28/16 23:34 Dose: 2 mg Ondansetron HCl (Zofran Odt) 4 mg PO Q4H PRN PRN Reason: nausea, able to take PO Oxybutynin Chloride (Oxybutynin) 5 mg PO BID PRN PRN Reason: Dysuria Last Admin: 08/30/16 08:24 Dose: 5 mg Sodium Chloride (Saline Flush) 10 ml FLUSH ASDIRECTED PRN PRN Reason: Keep Vein Open Sodium Chloride (Saline Flush) 2.5 ml FLUSH ASDIRECTED PRN PRN Reason: Keep Vein Open Temazepam (Restoril) 15 mg PO BEDTIME PRN PRN Reason: Insomnia Last Admin: 08/27/16 20:43 Dose: 15 mg Verapamil HCl (Calan Sr) 240 mg PO DAILY [facility] Last Admin: 08/30/16 08:24 Dose: 240 mg Warfarin Sodium (Coumadin) 5 mg PO DAILY@1400 [facility] Last Admin: 08/30/16 13:16 Dose: 5 mg Discontinued Medications Fluticasone Propionate (Flonase) 1 gm NASBOTH DAILY [facility] Last Admin: 08/27/16 08:06 Dose: 1 spray Hydrochlorothiazide (Hydrochlorothiazide) 25 mg PO DAILY [facility] Hydrochlorothiazide (Hydrochlorothiazide) 25 mg PO BEDTIME [facility] Last Admin: 08/26/16 20:50 Dose: 25 mg Ceftriaxone Sodium/Dextrose 1 (gm/ Premix) 50 mls @ 100 mls/hr IV DAILY ONE Stop: 08/26/16 02:30 Last Admin: 08/26/16 02:12 Dose: 100 mls/hr Cefazolin Sodium/Dextrose 1 gm (/ Premix) 50 mls @ 100 mls/hr IV Q8H [facility] Last Admin: 08/28/16 08:09 Dose: 100 mls/hr Levetiracetam (Keppra) 500 mg PO NOW ONE Stop: 08/26/16 00:27 Last Admin: 08/26/16 01:22 Dose: 500 mg Levetiracetam (Keppra) 500 mg PO BID [facility] Last Admin: 08/26/16 08:21 Dose: 500 mg Morphine Sulfate (Morphine) 4 mg IVPUSH Q2H PRN PRN Reason: Pain Last Admin: 08/26/16 05:34 Dose: 4 mg Non-Formulary Medication (Verapamil Hcl) 240 mg PO DAILY [facility] Temazepam (Restoril) 15 mg PO BEDTIME PRN PRN Reason: Sleep Warfarin Sodium (Coumadin) 5 mg PO DAILY [facility] Warfarin Sodium (Coumadin) 5 mg PO DAILY@1400 [facility] Last Admin: 08/27/16 13:49 Dose: 5 mg Warfarin Sodium (Coumadin) 7.5 mg PO 08/28/16@1400 [facility] Stop: 08/28/16 14:01 Last Admin: 08/28/16 13:08 Dose: 7.5 mg Warfarin Sodium (Coumadin) 2.5 mg PO ONETIME ONE Stop: 08/29/16 14:01 Last Admin: 08/29/16 13:23 Dose: 2.5 mg - Exam General: no acute distress HEENT: Pupils equal, Pupils reactive Neck: supple, no JVD Lungs: Clear to auscultation, Normal respiratory effort Cardiovascular: Regular Rate, Regular Rhythm Abdomen: no tenderness, no distension Extremities: no edema Neurological: no new focal deficit - Problem List Review Problem List Initiated/Reviewed/Updated: Yes - Plan Plan:: This 86 year old male admitted with aphasia and UTI 1. UTI/Prostatitis: continue keflex 2. Generalized weakness: improving 3. Afib: Continue Coumadin and Metoprolol and Verapamil. 4. HTN: Continue HCTZ 5. DM type 2: Continue Levemir. Add Novolog SSI with meals. VTE prophylaxis: On Coumadin. Dispo: Pending placement in SNF, likely tomorrow
[2016-08-30] MEDS: Oxybutynin 5 MG Tab PO SCH (20:07)
[2016-08-30] MEDS: Insulin Detemir 100 Units/ML 3 ML Pen SUBCUT SCH (21:20)
[2016-08-31] MEDS: Cephalexin 500 MG Cap PO SCH ×3 (00:33→11:09)
[2016-08-31] MEDS: Temazepam 15 MG Cap PO PRN (01:00)
[2016-08-31] MEDS: Acetaminophen 325 MG Tab PO PRN ×2 (01:00→08:40)
[2016-08-31] MEDS: Insulin Aspart 100 Units/ML 3 ML Pen SUBCUT SCH ×2 (06:39→11:18)
--- NOTE | 2016-08-31 08:16 | PCM.DCSUM1 ---
Discharge Summary - Hospital Course Brief History: This 86 year old male with pmh of chronic back pain with L4-5 fusion and L2-3 decompression, pacemaker, HTN, syncope, recurrent UTIs, and DM type 2 presented to the ED 08/26/2016 evening upon urging from children. He currently is living in [place], but is here is [place] for his 's . He reports he has had symptoms of the inability to find words, generalized weakness, jerking of upper extremities intermittently, and reports some swallowing difficulties within the last week. He denies any chest pain, SOB , palpitations, headache blurred vision or double vision. No fevers at home, no neck pain. No abdominal pain. Still having some urinary symptoms, burning and frequency. His back pain is hurting more recently and was started on Tramadol, around the time a lot of these symtpoms started. He feels while walking he is "going one way then another and back again." He has had trouble getting up and ambulating for the last week, feels like his "left knee or something" is weak. In ED family reported a jerking to upper limbs, symmetrical. No family at bedside to discuss recent symptoms with. 1 to 1 1/2 weeks ago he was treated for UTI by physician in [place] with Cipro for 7 days. He was then seen back in our ED 2 days prior to admission for continued urinary symptoms. He was sent home with Bactrim DS and just today UC returned with Staph aureus resistant to fluoroquinolones. In the ED WBC 5,000 Hgb 9.8, BUN 27, Cr 1.2. INR 1.49. UA revealed +nitrites, mod leukocyte esterase, WBC 41-46, UC pending. Head CT completed which revealed no acute intracranial process, diffuse cerebral atrophy noted, chronic microvascular disease noted as well. He was treated with Rocephin in ED and admitted for aphasia and UTI. He was started on Keppra in ED for myoclonic jerking. - Discharge Data Discharge Date: 08/31/16 Discharge Disposition: DC/Tfer to [facility] 03 Condition: Good - Discharge Diagnosis/Problem(s) (1) UTI (urinary tract infection) SNOMED Code(s): 62284902 ICD Code: N39.0 - URINARY TRACT INFECTION, SITE NOT SPECIFIED Status: Acute Current Visit: Yes Qualifiers: Hematuria presence: without hematuria (2) Prostatitis SNOMED Code(s): 9363696 ICD Code: N41.9 - INFLAMMATORY DISEASE OF PROSTATE, UNSPECIFIED Status: Acute Current Visit: Yes Qualifiers: Prostatitis type: acute Qualified Code(s): N41.0 - Acute prostatitis (3) Myoclonus SNOMED Code(s): 14698896, 915394946 ICD Code: G25.3 - MYOCLONUS Status: Resolved Current Visit: Yes (4) Expressive aphasia SNOMED Code(s): 022516039 ICD Code: R47.01 - APHASIA Status: Resolved Current Visit: Yes (5) HTN (hypertension) SNOMED Code(s): 06227893 ICD Code: I10 - ESSENTIAL (PRIMARY) HYPERTENSION Status: Chronic Current Visit: Yes Qualifiers: Hypertension type: essential hypertension Qualified Code(s): I10 - Essential (primary) hypertension (6) Pacemaker SNOMED Code(s): 563092032, 043718140 ICD Code: Z95.0 - PRESENCE OF CARDIAC PACEMAKER Status: Chronic Current Visit: Yes (7) Afib SNOMED Code(s): 23922194 ICD Code: I48.91 - UNSPECIFIED ATRIAL FIBRILLATION Status: Chronic Current Visit: Yes Qualifiers: Atrial fibrillation type: unspecified Qualified Code(s): I48.91 - Unspecified atrial fibrillation (8) DM type 2 (diabetes mellitus, type 2) SNOMED Code(s): 31552447 ICD Code: E11.9 - TYPE 2 DIABETES MELLITUS WITHOUT COMPLICATIONS Status: Chronic Current Visit: Yes Qualifiers: Diabetes mellitus complication status: without complication Diabetes mellitus intermodal truck driver insulin use: with intermodal truck driver use Qualified Code(s): E11.9 - Type 2 diabetes mellitus without complications; Z79.4 - termite exterminator (current) use of insulin - Patient Summary/Data Consults: Consultations 08/26/16 12:07 Consult to Physician [CONS] Routine 08/27/16 08:07 Consult to Physical Therapy [PT Evaluation and Treatment] [CONS] Routine - Patient Instructions Diet: Diabetic Diet Activity: As Tolerated Showering/Bathing: May Shower Notify Provider of: Fever, Increased Pain, Swelling and Redness, Drainage, Nausea and/or Vomiting Other/Special Instructions: PT/OT to evaluate and treat. BS check at bedtime and PRN - Discharge Plan Prescriptions/Med Rec: Cephalexin [IJD: Cephalexin] 500 mg PO Q6HR #40 capsule Acetaminophen [Tylenol] 650 mg PO Q4H PRN #30 tablet PRN Reason: Pain Docusate Sodium [Colace] 100 mg PO BID #30 cap Fluticasone Propionate [Flonase] 0 gm NASBOTH BID #1 bottle Home Medications: Home Meds Hydrochlorothiazide 25 mg PO DAILY 08/23/16 [History] Insulin Detemir [Levemir] 20 unit SUBCUT BEDTIME 08/23/16 [History] Metoprolol Tartrate 25 mg PO DAILY 08/23/16 [History] Oxybutynin 5 mg PO BID PRN 08/23/16 [History] Verapamil HCl [Verapamil ER] 240 mg PO DAILY 08/23/16 [History] Warfarin Sodium [Jantoven] 5 mg PO DAILY 08/23/16 [History] Acetaminophen [Tylenol] 650 mg PO Q4H PRN #30 tablet 08/31/16 [Rx] Cephalexin [IJD: Cephalexin] 500 mg PO Q6HR #40 capsule 08/31/16 [Rx] Docusate Sodium [Colace] 100 mg PO BID #30 cap 08/31/16 [Rx] Fluticasone Propionate [Flonase] 0 gm NASBOTH BID #1 bottle 08/31/16 [Rx] Forms: ED Department Discharge Referrals: Michael Lentz MD [Physician] - (Follow up this week at [facility]) - Discharge Summary/Plan Comment DC Time >30 min.: No Discharge Summary/Plan Comment: Discharge Diagnoses: Prostatitis/UTI Generalized weakness Myclonic jerking-resolved Chronic back pain Afib HTN Dm type 2 [place] was admitted and treated for Prostatitis/UTI. UC was obtained and returned with mixed maggy <1,000. He continued to improve and do well with Ancef , changed to oral antiobitic, Keflex over the weekend and has continued to do well. He will remain on Keflex for another 10 days due to suspicion of Prostatitis. Dr. Macdonald, Neurology was consulted regarding myclonic jerking and concerns from ED of stroke. MRI unable to be completed secondary to pacemaker in place. Dr. Macdonald felt speech complaints were more encephalopathy than aphasia, and other than ataxia, there were no other deficits which lowered her thought on focal ischemia. She suspected gait abnormalities, speech changes are likely related to UTI and myoclonus likely toxic metabolic related to UTI, Tramadol and /or Ciprofloxacin. We held Keppra per her recommendations, and myclonus did not return. He has improved well. Ataxia improved as well encephalopathy with treatment of prostatitis. PT was consulted for generalized weakness and associated chronic back pain. He did well but family and him felt he may need more PT prior to returning home. He will be transferred to [facility] for skilled PT rehabilitation for a short period of time with hopes of returning to [place]. Dr. Michael Lentz has accepted patient upon transfer and is aware of medical history. He is currently taking Tylenol for back pain and wearing back belt which is giving good pain relief. - General Info Date of Service: 08/31/16 Admission Dx/Problem (Free Text: Admission Diagnosis/Problem Admission Diagnosis/Problem UTI Subjective Update: Doing well, sitting up in chair eating breakfast. Denies any chest pain or SOB. Reports back pain is controlled right now. Has no other complaints, agrees with transfer to [facility] today. Functional Status: Reports: pain controlled, tolerating diet, ambulating, urinating - Review of Systems General: Reports: No Symptoms. Denies: Fever HEENT: Reports: no symptoms. Denies: sinus congestion, sore throat, rhinitis Pulmonary: Reports: no symptoms. Denies: shortness of breath, cough, sputum Cardiovascular: Reports: No Symptoms. Denies: Chest Pain, Palpitations, Edema Gastrointestinal: Reports: No symptoms. Denies: Abdominal pain, Nausea, Vomiting Genitourinary: Reports: no symptoms. Denies: dysuria, frequency, incontinence, retention Musculoskeletal: Reports: no symptoms Skin: Reports: no symptoms Neurological: Reports: No Symptoms Psychiatric: Reports: no symptoms - Patient Data Vitals - Most Recent: Last Vital Signs Temp 96.9 F 08/31/16 08:00 Pulse 80 08/31/16 08:00 Resp 20 08/31/16 08:00 BP 109/58 L 08/31/16 08:00 Pulse Ox 93 L 08/31/16 08:00 Weight - Most Recent: 77.474 kg I&O - Last 24 hours: Intake & Output 08/30/16 08/31/16 08/31/16 22:59 06:59 14:59 Intake Total 500 400 Output Total 500 780 Balance 0 -380 Lab Results - Last 24 hrs: Laboratory Results - last 24 hr 08/30/16 08/30/16 08/30/16 Range/Units 06:23 11:18 16:10 INR (0.86-1.11) POC Glucose 111 H 203 H 142 H (60-110) mg/dL 08/30/16 08/31/16 08/31/16 Range/Units 21:18 05:45 06:31 INR 2.08 H (0.86-1.11) POC Glucose 152 H 85 (60-110) mg/dL Med Orders - Current: Current Medications Acetaminophen (Tylenol) 650 mg PO Q4H PRN PRN Reason: Pain Last Admin: 08/31/16 01:00 Dose: 650 mg Bisacodyl (Dulcolax) 5 mg PO DAILY PRN PRN Reason: Constipation Last Admin: 08/26/16 16:26 Dose: 5 mg Cephalexin (Keflex) 500 mg PO Q6HR [facility] Last Admin: 08/31/16 06:39 Dose: 500 mg Docusate Sodium (Colace) 100 mg PO BID [facility] Last Admin: 08/30/16 20:06 Dose: 100 mg Fluticasone Propionate (Flonase) 0 gm NASBOTH BID [facility] Last Admin: 08/30/16 20:07 Dose: 1 spray Hydrochlorothiazide (Hydrochlorothiazide) 25 mg PO DAILY [facility] Last Admin: 08/30/16 08:24 Dose: 25 mg Insulin Aspart (Novolog) 0 unit SUBCUT TIDAC [facility] PRN Reason: Protocol Last Admin: 08/31/16 06:39 Dose: Not Given Insulin Detemir (Levemir) 20 unit SUBCUT BEDTIME [facility] Last Admin: 08/30/16 21:20 Dose: 20 units Metoprolol Tartrate (Lopressor) 25 mg PO DAILY [facility] Last Admin: 08/30/16 08:24 Dose: 25 mg Morphine Sulfate (Morphine) 2 mg IVPUSH Q3H PRN PRN Reason: Pain Last Admin: 08/28/16 23:34 Dose: 2 mg Ondansetron HCl (Zofran Odt) 4 mg PO Q4H PRN PRN Reason: nausea, able to take PO Oxybutynin Chloride (Oxybutynin) 5 mg PO BID [facility] Last Admin: 08/30/16 20:07 Dose: 5 mg Sodium Chloride (Saline Flush) 10 ml FLUSH ASDIRECTED PRN PRN Reason: Keep Vein Open Sodium Chloride (Saline Flush) 2.5 ml FLUSH ASDIRECTED PRN PRN Reason: Keep Vein Open Temazepam (Restoril) 15 mg PO BEDTIME PRN PRN Reason: Insomnia Last Admin: 08/31/16 01:00 Dose: 15 mg Verapamil HCl (Calan Sr) 240 mg PO DAILY [facility] Last Admin: 08/30/16 08:24 Dose: 240 mg Warfarin Sodium (Coumadin) 5 mg PO DAILY@1400 [facility] Last Admin: 08/30/16 13:16 Dose: 5 mg Discontinued Medications Fluticasone Propionate (Flonase) 1 gm NASBOTH DAILY [facility] Last Admin: 08/27/16 08:06 Dose: 1 spray Hydrochlorothiazide (Hydrochlorothiazide) 25 mg PO DAILY [facility] Hydrochlorothiazide (Hydrochlorothiazide) 25 mg PO BEDTIME [facility] Last Admin: 08/26/16 20:50 Dose: 25 mg Ceftriaxone Sodium/Dextrose 1 (gm/ Premix) 50 mls @ 100 mls/hr IV DAILY ONE Stop: 08/26/16 02:30 Last Admin: 08/26/16 02:12 Dose: 100 mls/hr Cefazolin Sodium/Dextrose 1 gm (/ Premix) 50 mls @ 100 mls/hr IV Q8H [facility] Last Admin: 08/28/16 08:09 Dose: 100 mls/hr Levetiracetam (Keppra) 500 mg PO NOW ONE Stop: 08/26/16 00:27 Last Admin: 08/26/16 01:22 Dose: 500 mg Levetiracetam (Keppra) 500 mg PO BID [facility] Last Admin: 08/26/16 08:21 Dose: 500 mg Morphine Sulfate (Morphine) 4 mg IVPUSH Q2H PRN PRN Reason: Pain Last Admin: 08/26/16 05:34 Dose: 4 mg Non-Formulary Medication (Verapamil Hcl) 240 mg PO DAILY [facility] Oxybutynin Chloride (Oxybutynin) 5 mg PO BID PRN PRN Reason: Dysuria Last Admin: 08/30/16 08:24 Dose: 5 mg Temazepam (Restoril) 15 mg PO BEDTIME PRN PRN Reason: Sleep Warfarin Sodium (Coumadin) 5 mg PO DAILY [facility] Warfarin Sodium (Coumadin) 5 mg PO DAILY@1400 [facility] Last Admin: 08/27/16 13:49 Dose: 5 mg Warfarin Sodium (Coumadin) 7.5 mg PO 08/28/16@1400 [facility] Stop: 08/28/16 14:01 Last Admin: 08/28/16 13:08 Dose: 7.5 mg Warfarin Sodium (Coumadin) 2.5 mg PO ONETIME ONE Stop: 08/29/16 14:01 Last Admin: 08/29/16 13:23 Dose: 2.5 mg - Exam General: Reports: alert, oriented, cooperative Neck: Reports: supple Lungs: Reports: Clear to auscultation, Normal respiratory effort Cardiovascular: Reports: Regular Rate, Regular Rhythm Abdomen: Reports: bowel sounds present, soft, no tenderness, no distension Extremities: Reports: no edema, normal pulses Neurological: Reports: no new focal deficit Psy/Mental Status: Reports: alert, normal affect, normal mood *Q Meaningful Use (DIS) - VTE *Q VTE Criteria *Q: - Stroke *Q Stroke Criteria *Q: - AMI *Q AMI Criteria *Q:
[2016-08-31] MEDS: Oxybutynin 5 MG Tab PO SCH (08:40)
[2016-08-31] MEDS: Docusate Sodium 100 MG Cap PO SCH (08:40)
[2016-08-31] MEDS: Verapamil 240 MG Tab.ER PO SCH (08:40)
[2016-08-31] MEDS: Hydrochlorothiazide 25 MG Tab PO SCH (08:40)
[2016-08-31] MEDS: Metoprolol Tartrate 25 MG Tab PO SCH (08:40)
[2016-08-31] MEDS: Fluticasone Propionate Nasal Spray 16 GM Bottle NASBOTH SCH (08:48)
[2016-08-31 12:06] VITALS: BP 120/67
== END 2016-08-31 11:40 | DRG 690 ==
LOC: MW.ED 23:11 → MW.MS 08-26 01:53
PROVIDERS: ADMIT Family Medicine; ATTEND Internal Medicine
DX: N39.0 Urinary tract infection, site not specified (principal); R47.01 Aphasia; N41.9 Inflammatory disease of prostate, unspecified; G25.3 Myoclonus; R27.0 Ataxia, unspecified; R53.1 Weakness; B95.61 Methicillin susceptible Staphylococcus aureus infection as the cause of diseases classified elsewhere; I10 Essential (primary) hypertension; Z95.0 Presence of cardiac pacemaker; I48.91 Unspecified atrial fibrillation; N42.9 Disorder of prostate, unspecified; E11.9 Type 2 diabetes mellitus without complications; G89.29 Other chronic pain; M54.9 Dorsalgia, unspecified; H91.90 Unspecified hearing loss, unspecified ear; Z87.891 Personal history of nicotine dependence; Z79.01 Long term (current) use of anticoagulants; Z79.4 Long term (current) use of insulin; Z79.899 Other long term (current) drug therapy; Z88.8 Allergy status to other drugs, medicaments and biological substances
CPT/HCPCS: 36415; 70450; 80053; 83735; 85025; 85610; 99285; A9270; 80048; 81001; 82962; 87086; 93005; 96374; 97161-GP; 99284; J0690; J0696; J1815-GY ×2; J2270